=== PATIENT | female | born 1985 | race Caucasian/White ===

== ENCOUNTER 2017-12-25 16:30 | Emergency (ER) | payer OTHER ==
[2017-12-25 16:35] VITALS: BP 137/99; PULSE 102; RESP 17; TEMP 98.3
[2017-12-25] MEDS ORDERED: KETOROLAC 60 MG/2 ML VIAL IM STA (16:44)
--- NOTE | 2017-12-25 16:49 | ED ---
General Adult HPI - General Chief complaint: Dental/Oral Stated complaint: Tooth Ache Time Seen by Provider: 12/25/17 16:41 Source: patient, RN notes reviewed Mode of arrival: ambulatory Limitations: no limitations - History of Present Illness Initial comments: 32 yo female presents to the ER with a chief complaint of right-sided dental pain. She states this started last night. She states she does have a fractured tooth to the right lower jaw. Patient states that she's been trying [id number] medications without much improvement. She denies any fever chills. She denies a radiation to neck or any difficulty opening closing her mouth. She was concerned due to her continued pain so she thought that she should be evaluated. She states that she does have a dentist but she has not made a follow-up appointment with him yet. Patient denies any recent fever, chills, shortness of breath, chest pain, back pain, abdominal pain, nausea vomiting, numbness or tingling, dysuria or hematuria, constipation or diarrhea, headaches or visual changes, or any other current symptoms. - Related Data Home Medications Medication Instructions Recorded Confirmed ALPRAZolam [Xanax] 0.25 mg PO DAILY PRN 03/26/14 12/17/15 Levothyroxine Sodium [Synthroid] 125 mcg PO QAM 03/26/14 12/17/15 DULoxetine HCL [Cymbalta] 20 mg PO QAM 02/09/15 12/17/15 HYDROcodone/APAP 7.5-325MG [[place] 1 tab PO BID PRN 02/09/15 12/17/15 7.5-325] busPIRone HCL [Buspar] 7.5 mg PO BID 02/09/15 12/17/15 Omeprazole [PriLOSEC] 20 mg PO DAILY PRN 10/13/15 12/17/15 Calcium Carbonate [Tums] 500 mg PO Q6HR PRN 12/17/15 12/17/15 Previous Rx's Medication Instructions Recorded Ibuprofen [Motrin] 800 mg PO Q8HR PRN #30 tab 07/25/15 Ibuprofen [Motrin] 800 mg PO Q8HR PRN #30 tab 12/17/15 Fluconazole [Diflucan] 150 mg PO ONCE #2 tab 12/25/17 Naproxen [Naprosyn] 500 mg PO Q12HR #20 tab 12/25/17 Penicillin V Potassium [Pen Vee K] 500 mg PO QID 7 Days tablet 12/25/17 Allergies Allergy/AdvReac Type Severity Reaction Status Date / Time adhesive tape Allergy Rash/Hives Verified 12/25/17 16:35 Review of Systems ROS Statement: Those systems with pertinent positive or pertinent negative responses have been documented in the HPI. ROS Other: All systems not noted in ROS Statement are negative. Past Medical History Past Medical History: GERD/Reflux, Thyroid Disorder Additional Past Medical History / Comment(s): Tourettes Syndrome,chronic back pain History of Any Multi-Drug Resistant Organisms: None Reported Past Surgical History: Bladder Surgery, Tonsillectomy Additional Past Surgical History / Comment(s): colonoscopy,transvag mesh place, EGD, IUD in place Additional Past Anesthesia/Blood Transfusion Reaction / Comment(s): tearful when waking up from anesthesia Past Psychological History: Anxiety, Depression Smoking Status: Current every day smoker Past Alcohol Use History: Occasional Past Drug Use History: None Reported - Past Family History Mother History Unknown: Yes Family Medical History: Rheumatoid Arthritis (RA) Additional Family Medical History / Comment(s): glaucoma,anxiety,depression Father Family Medical History: Diabetes Mellitus, Hypertension, Thyroid Disorder Additional Family Medical History / Comment(s): MRSA-WOUNDS General Exam Limitations: no limitations General appearance: alert, in no apparent distress Eye exam: Present: normal appearance, PERRL, EOMI. Absent: scleral icterus, conjunctival injection, periorbital swelling ENT exam: Present: normal exam, normal oropharynx (No abscess noted.), mucous membranes moist, other Neck exam: Present: normal inspection. Absent: tenderness, meningismus, lymphadenopathy Respiratory exam: Present: normal lung sounds bilaterally. Absent: respiratory distress, wheezes, rales, rhonchi, stridor Cardiovascular Exam: Present: regular rate, normal rhythm, normal heart sounds. Absent: systolic murmur, diastolic murmur, rubs, gallop, clicks Neurological exam: Present: alert, oriented X3 Psychiatric exam: Present: normal affect, normal mood Skin exam: Present: warm, dry, intact, normal color. Absent: rash Course Vital Signs 12/25/17 16:32 Temperature 98.3 F Pulse Rate 102 H Respiratory 17 Rate Blood Pressure 137/99 O2 Sat by Pulse 99 Oximetry Medical Decision Making - Medical Decision Making 32-year-old female presents emergency department with a chief complaint of right -sided dental pain. At this time the patient will be started on antibiotics and pain medication. We did discuss follow-up return parameters all questions. Patient family stated the Giancarlo on questions have been answered. This time they are negative plan. This and patient will be discharged. Disposition Clinical Impression: Fracture of tooth, Dental caries Disposition: HOME SELF-CARE Condition: Stable Instructions: Dental Caries (ED) Additional Instructions: Please use medication as discussed. Please follow up with family doctor if symptoms have not improved over the next two days. Please return to the emergency room if your symptoms increase or worsen or for any other concerns. Prescriptions: Fluconazole [Diflucan] 150 mg PO ONCE #2 tab Naproxen [Naprosyn] 500 mg PO Q12HR #20 tab Penicillin V Potassium [Pen Vee K] 500 mg PO QID 7 Days tablet Referrals: Lavelle Holder DO [Primary Care Provider] - 1-2 days Time of Disposition: 16:47
== END 2017-12-25 17:11 | disposition home or self-care (01) ==
LOC: EC 16:30
DX: S02.5XXA Fracture of tooth (traumatic), initial encounter for closed fracture (principal); K02.9 Dental caries, unspecified; E07.9 Disorder of thyroid, unspecified; F32.9 Major depressive disorder, single episode, unspecified; F41.9 Anxiety disorder, unspecified; F17.200 Nicotine dependence, unspecified, uncomplicated; Z79.899 Other long term (current) drug therapy; Z91.09 Other allergy status, other than to drugs and biological substances; X58.XXXA Exposure to other specified factors, initial encounter
CPT/HCPCS: 99282; 96372; J1885

== ENCOUNTER 2017-12-30 18:35 | Emergency (ER) | payer OTHER ==
[2017-12-30] MEDS ORDERED: CLINDAMYCIN 900 MG in DEXTROSE 5% IN WATER 50 ML IVPB STA ×2 (20:46)
[2017-12-30] MEDS ORDERED: SODIUM CHLORIDE 0.9% 1,000 ML IV STA (20:46)
[2017-12-30] MEDS ORDERED: RX INFO: IV CONTRAST WAS GIVEN 1 EACH MISC MISCELLANE PRN (20:46)
[2017-12-30] MEDS ORDERED: KETOROLAC 30 MG/ML 1 ML VIAL IVP STA (21:09)
--- NOTE | 2017-12-30 21:18 | ED ---
General Adult HPI - General Chief complaint: Dental/Oral Stated complaint: Tooth infection Time Seen by Provider: 12/30/17 20:16 Source: patient, RN notes reviewed Mode of arrival: ambulatory Limitations: no limitations - History of Present Illness Initial comments: 32-year-old female presents to the emergency department with a chief complaint of worsening right-sided facial pain. She states she was seen here about a week ago for dental pain. She starting antibiotics and pain medication. She states that she has continued to have a fever with this. She states that she does have pain that radiates into the as well as of her jaw. She denies any nausea or vomiting with it. Patient was concerned due to her continuing dental pain and the fact that it was not getting any better. She does have a dental appointment but it is not until the . Patient denies any recent fever, chills, shortness of breath, chest pain, back pain, abdominal pain, nausea vomiting, numbness or tingling, dysuria or hematuria, constipation or diarrhea, headaches or visual changes, or any other current symptoms. - Related Data Home Medications Medication Instructions Recorded Confirmed ALPRAZolam [Xanax] 0.25 mg PO DAILY PRN 03/26/14 12/30/17 Levothyroxine Sodium [Synthroid] 125 mcg PO QAM 03/26/14 12/30/17 DULoxetine HCL [Cymbalta] 20 mg PO QAM 02/09/15 12/30/17 HYDROcodone/APAP 7.5-325MG [[place] 1 tab PO BID PRN 02/09/15 12/30/17 7.5-325] busPIRone HCL [Buspar] 7.5 mg PO BID 02/09/15 12/30/17 Omeprazole [PriLOSEC] 20 mg PO DAILY PRN 10/13/15 12/30/17 Calcium Carbonate [Tums] 500 mg PO Q6HR PRN 12/17/15 12/30/17 Previous Rx's Medication Instructions Recorded Ibuprofen [Motrin] 800 mg PO Q8HR PRN #30 tab 07/25/15 Ibuprofen [Motrin] 800 mg PO Q8HR PRN #30 tab 12/17/15 Fluconazole [Diflucan] 150 mg PO ONCE #2 tab 12/25/17 Naproxen [Naprosyn] 500 mg PO Q12HR #20 tab 12/25/17 Penicillin V Potassium [Pen Vee K] 500 mg PO QID 7 Days tablet 12/25/17 Clindamycin [Cleocin] 450 mg PO Q8HR #90 capsule 12/30/17 traMADol HCl [Ultram] 50 mg PO Q6H PRN #20 tab 12/30/17 Allergies Allergy/AdvReac Type Severity Reaction Status Date / Time adhesive tape Allergy Rash/Hives Verified 12/30/17 19:52 Review of Systems ROS Statement: Those systems with pertinent positive or pertinent negative responses have been documented in the HPI. ROS Other: All systems not noted in ROS Statement are negative. Past Medical History Past Medical History: GERD/Reflux, Thyroid Disorder Additional Past Medical History / Comment(s): Tourettes Syndrome,chronic back pain History of Any Multi-Drug Resistant Organisms: None Reported Past Surgical History: Bladder Surgery, Tonsillectomy Additional Past Surgical History / Comment(s): colonoscopy,transvag mesh place, EGD, IUD in place Additional Past Anesthesia/Blood Transfusion Reaction / Comment(s): tearful when waking up from anesthesia Past Psychological History: Anxiety, Depression Smoking Status: Current every day smoker Past Alcohol Use History: Occasional Past Drug Use History: None Reported - Past Family History Mother History Unknown: Yes Family Medical History: Rheumatoid Arthritis (RA) Additional Family Medical History / Comment(s): glaucoma,anxiety,depression Father Family Medical History: Diabetes Mellitus, Hypertension, Thyroid Disorder Additional Family Medical History / Comment(s): MRSA-WOUNDS General Exam Limitations: no limitations General appearance: alert, in no apparent distress Eye exam: Present: normal appearance, PERRL, EOMI. Absent: scleral icterus, conjunctival injection, periorbital swelling ENT exam: Present: normal exam, mucous membranes moist, other (Diffuse cavities throughout upper and lower right jaw. Tenderness patient along the jawline no obvious abscess noted.) Neck exam: Present: normal inspection, tenderness (some tenderness under right jawline). Absent: meningismus, lymphadenopathy Respiratory exam: Present: normal lung sounds bilaterally. Absent: respiratory distress, wheezes, rales, rhonchi, stridor Cardiovascular Exam: Present: regular rate, normal rhythm, normal heart sounds. Absent: systolic murmur, diastolic murmur, rubs, gallop, clicks Neurological exam: Present: alert, oriented X3 Psychiatric exam: Present: normal affect, normal mood Skin exam: Present: warm, dry, intact, normal color. Absent: rash Course Vital Signs 12/30/17 19:48 Temperature 100.1 F H Pulse Rate 88 Respiratory 20 Rate Blood Pressure 148/99 O2 Sat by Pulse 99 Oximetry Medical Decision Making - Medical Decision Making 32-year-old female presents emergency Department chief complaint of right-sided dental pain. Patient has been on outpatient antibiotics for about one week now. The worsening and she now has a fever. At this time CAT scan is reviewed we discussed results. This time we'll switch her to clindamycin. This time patient's low-grade fever white count is low as well. Patient is feeling better. We will start her on tramadol for pain as well as clindamycin. We discussed close follow-up with a dentist. We discussed this could worsen she may need hospitalization. We did discuss return parameters all questions. Patient stated that she understood and she is agreement this plan. She will be discharged. - Lab Data Result diagrams: 12/30/17 21:13 12/30/17 21:13 Lab Results 12/30/17 12/30/17 Range/Units 21:13 21:13 WBC 11.1 H (3.8-10.6) k/uL RBC 4.75 (3.80-5.40) m/uL Hgb 14.1 (11.4-16.0) gm/dL Hct 42.9 (34.0-46.0) % MCV 90.5 (80.0-100.0) fL MCH 29.6 (25.0-35.0) pg MCHC 32.7 (31.0-37.0) g/dL RDW 12.7 (11.5-15.5) % Plt Count 310 (150-450) k/uL Neutrophils % 52 % Lymphocytes % 35 % Monocytes % 5 % Eosinophils % 4 % Basophils % 1 % Neutrophils # 5.8 (1.3-7.7) k/uL Lymphocytes # 3.9 (1.0-4.8) k/uL Monocytes # 0.6 (0-1.0) k/uL Eosinophils # 0.5 (0-0.7) k/uL Basophils # 0.1 (0-0.2) k/uL Sodium 139 (137-145) mmol/L Potassium 4.4 (3.5-5.1) mmol/L Chloride 102 (98-107) mmol/L Carbon Dioxide 27 (22-30) mmol/L Anion Gap 10 mmol/L BUN 14 (7-17) mg/dL Creatinine 0.71 (0.52-1.04) mg/dL Est GFR (MDRD) Af Amer >60 (>60 ml/min/1.73 sqM) Est GFR (MDRD) Non-Af >60 (>60 ml/min/1.73 sqM) Glucose 87 (74-99) mg/dL Calcium 9.9 (8.4-10.2) mg/dL Total Bilirubin 0.3 (0.2-1.3) mg/dL AST 29 (14-36) U/L ALT 27 (9-52) U/L Alkaline Phosphatase 88 (38-126) U/L Total Protein 7.8 (6.3-8.2) g/dL Albumin 4.6 (3.5-5.0) g/dL - Radiology Data Radiology results: report reviewed, image reviewed Disposition Clinical Impression: Dental caries Disposition: HOME SELF-CARE Condition: Stable Instructions: Dental Caries (ED) Additional Instructions: [facility] [address] [place] [address] [phone] (existing clients only) For new clients: [phone] 1st consult: $50 (includes Xrays) Usually 30% less then private dentist for visits after. [employer] Have to pay $50 for Xrays anmd rest is covered. [phone] Please use medication as discussed. Please follow up with family doctor if symptoms have not improved over the next two days. Please return to the emergency room if your symptoms increase or worsen or for any other concerns. Prescriptions: Clindamycin [Cleocin] 450 mg PO Q8HR #90 capsule traMADol HCl [Ultram] 50 mg PO Q6H PRN #20 tab PRN Reason: Pain Referrals: Lavelle Holder DO [Primary Care Provider] - 1-2 days Time of Disposition: 22:15
[2017-12-30 21:34] LABS: Basophils # (A) 0.1 k/uL (0-0.2); Basophils % (A) 1 %; Eosinophils # (A) 0.5 k/uL (0-0.7); Eosinophils % (A) 4 %; HCT 42.9 % (34.0-46.0); HGB 14.1 gm/dL (11.4-16.0); Lymphocytes # (A) 3.9 k/uL (1.0-4.8); Lymphocytes % (A) 35 %; MCH 29.6 pg (25.0-35.0); MCHC 32.7 g/dL (31.0-37.0); MCV 90.5 fL (80.0-100.0); Mean Platelet Volume 7.1; Monocytes # (A) 0.6 k/uL (0-1.0); Monocytes % (A) 5 %; Neutrophils # (A) 5.8 k/uL (1.3-7.7); Neutrophils % (A) 52 %; Platelet Count 310 k/uL (150-450); RBC 4.75 m/uL (3.80-5.40); RDW 12.7 % (11.5-15.5); WBC 11.1 k/uL (3.8-10.6)
[2017-12-30 21:43] LABS: ALT 27 U/L (9-52); AST 29 U/L (14-36); Albumin 4.6 g/dL (3.5-5.0); Alkaline Phosphatase 88 U/L (38-126); Anion Gap 10 mmol/L; Blood Urea Nitrogen 14 mg/dL (7-17); Calcium 9.9 mg/dL (8.4-10.2); Carbon Dioxide 27 mmol/L (22-30); Chloride 102 mmol/L (98-107); Glucose 87 mg/dL (74-99); Potassium 4.4 mmol/L (3.5-5.1); Sodium 139 mmol/L (137-145); Total Bilirubin 0.3 mg/dL (0.2-1.3); Total Protein 7.8 g/dL (6.3-8.2)
--- NOTE | 2017-12-30 22:05 | CT ---
EXAMINATION TYPE: CT soft tissue neck w con DATE OF EXAM: 12/30/2017 HISTORY: Jaw and head pain x6 days. COMPARISON: NONE CT DLP: 594.2 mGycm. Automated Exposure Control for Dose Reduction was Utilized. TECHNIQUE: CT scan of the neck is performed with IV Contrast, patient injected with 100ml mL of Omni paque 300, axial images are obtained, coronal and sagittal reformatted images are reviewed. FINDINGS: Airway: No gross abnormality seen. Parotid/submandibular glands: No gross abnormality seen. Partially intraparotid lymph nodes are seen bilaterally. Carotid/Vascular Structures: The left vertebral artery originates strictly from the aortic arch, a no rmal variant. Left vertebral artery is dominant and right vertebral artery is diminutive. Carotid art eries and their visualized portions are patent. Vertebral arteries are also patent. Osseous Structures: Osseous structures appear intact. Within the fifth posterior to this on the right of the mandible there is periapical lucency without cortical breakthrough indicative of periodontal disease without abscess. Mandibular condyles are located within the mandibular fossa. Paranasal sinus es are well aerated. Other: No visualized adenopathy within the head or neck IMPRESSION: 1. Right maxillary tooth periapical lucency relating to periodontal disease without current abscess. 2. Temporomandibular joints are symmetric and unremarkable. MRI could be performed if there is furthe r clinical indication.
[2017-12-30 23:03] VITALS: BP 135/80; PULSE 90; RESP 18; TEMP 98.9
== END 2017-12-30 23:00 | disposition home or self-care (01) ==
LOC: EC 18:35
DX: K02.9 Dental caries, unspecified (principal); F32.9 Major depressive disorder, single episode, unspecified; F41.9 Anxiety disorder, unspecified; E07.9 Disorder of thyroid, unspecified; F17.200 Nicotine dependence, unspecified, uncomplicated; Z91.048 Other nonmedicinal substance allergy status; Z79.899 Other long term (current) drug therapy
CPT/HCPCS: 36415; 80053; 85025; 87040; 70491; 99283; 96365; 96375; 96361; J1885; Q9967

== ENCOUNTER 2018-07-18 11:01 | Emergency (ER) | payer OTHER ==
[2018-07-18 11:09] VITALS: BP 140/98; PULSE 90; RESP 18; TEMP 98.3
--- NOTE | 2018-07-18 11:56 | ED ---
ENT HPI - General Chief complaint: ENT Stated complaint: Throat/Ear Pain Time Seen by Provider: 07/18/18 11:23 Source: patient, RN notes reviewed, old records reviewed Mode of arrival: ambulatory Limitations: no limitations - History of Present Illness Initial comments: Patient is a 32 year old female, with CC of sore throat onset 3-4 days ago. Patient reports that it seems to be worsening. Patient complains of a cough with thick yellow mucus, sinus conestion. Patient reports that she has ear pain. She has been taking OTC medications without relief. No history of sick contacts. - Related Data Home Medications Medication Instructions Recorded Confirmed Levothyroxine Sodium [Synthroid] 125 mcg PO QAM 03/26/14 07/18/18 DULoxetine HCL [Cymbalta] 20 mg PO QAM 02/09/15 07/18/18 busPIRone HCL [Buspar] 7.5 mg PO BID 02/09/15 07/18/18 Omeprazole [PriLOSEC] 20 mg PO DAILY PRN 10/13/15 07/18/18 Acyclovir [Zovirax] 400 mg PO BID 07/18/18 07/18/18 Previous Rx's Medication Instructions Recorded Ibuprofen [Motrin] 800 mg PO Q8HR PRN #30 tab 12/17/15 Azithromycin [Zithromax Z-pack] 250 mg PO DIRECTED #6 tab 07/18/18 Fluconazole [Diflucan] 150 mg PO DAILY #2 tab 07/18/18 methylPREDNISolone Dose Pack 4 mg PO DIRECTED #21 package 07/18/18 [Medrol Dose Pack] Allergies Allergy/AdvReac Type Severity Reaction Status Date / Time adhesive tape Allergy Rash/Hives Verified 07/18/18 11:18 Review of Systems ROS Statement: Those systems with pertinent positive or pertinent negative responses have been documented in the HPI. ROS Other: All systems not noted in ROS Statement are negative. Past Medical History Past Medical History: GERD/Reflux, Thyroid Disorder Additional Past Medical History / Comment(s): Tourettes Syndrome,chronic back pain History of Any Multi-Drug Resistant Organisms: None Reported Past Surgical History: Bladder Surgery, Tonsillectomy Additional Past Surgical History / Comment(s): colonoscopy,transvag mesh place, EGD, IUD in place Additional Past Anesthesia/Blood Transfusion Reaction / Comment(s): tearful when waking up from anesthesia Past Psychological History: Anxiety, Depression Smoking Status: Current every day smoker Past Alcohol Use History: Occasional Past Drug Use History: None Reported - Past Family History Mother History Unknown: Yes Family Medical History: Rheumatoid Arthritis (RA) Additional Family Medical History / Comment(s): glaucoma,anxiety,depression Father Family Medical History: Diabetes Mellitus, Hypertension, Thyroid Disorder Additional Family Medical History / Comment(s): MRSA-WOUNDS General Exam - General Exam Comments Initial Comments: Well appearing 32 year old female, no distress. Limitations: no limitations General appearance: alert, in no apparent distress Head exam: Present: atraumatic, normocephalic, normal inspection Eye exam: Present: normal appearance, PERRL, EOMI. Absent: scleral icterus, conjunctival injection, periorbital swelling ENT exam: Present: normal exam, mucous membranes moist, TM's normal bilaterally (Effusion R TM). Absent: normal oropharynx (Erythematous oropharynx, ) Neck exam: Present: normal inspection. Absent: tenderness, meningismus, lymphadenopathy Respiratory exam: Present: normal lung sounds bilaterally. Absent: respiratory distress, wheezes, rales, rhonchi, stridor Cardiovascular Exam: Present: regular rate, normal rhythm, normal heart sounds. Absent: systolic murmur, diastolic murmur, rubs, gallop, clicks GI/Abdominal exam: Present: soft, normal bowel sounds. Absent: distended, tenderness, guarding, rebound, rigid Extremities exam: Present: normal inspection, full ROM, normal capillary refill. Absent: tenderness, pedal edema, joint swelling, calf tenderness Back exam: Present: normal inspection Neurological exam: Present: alert, oriented X3, CN II-XII intact Psychiatric exam: Present: normal affect, normal mood Skin exam: Present: warm, dry, intact, normal color. Absent: rash Course Vital Signs 07/18/18 11:07 Temperature 98.3 F Pulse Rate 90 Respiratory 18 Rate Blood Pressure 140/98 O2 Sat by Pulse 99 Oximetry Medical Decision Making - Medical Decision Making 32 year old [employer] [place] presents with upper respiratory infection. Patient has erythematous sore throat, patient has effusion in R TM. At this tie will start patient on steriod and azithromycin. Requests diflucan for after antibiotic for yeast infection. REturn parameters discussed. - Lab Data Lab Results 07/18/18 Range/Units 11:30 Group A Strep Rapid Negative (Negative) Disposition Clinical Impression: Upper respiratory infection Disposition: HOME SELF-CARE Condition: Good Instructions: Upper Respiratory Infection (ED) Additional Instructions: Patient advised to rest and increase fluid intake. Continue [id number] medications such as decongestant. Return to emergency department if any alarming signs or symptoms occur. Prescriptions: Azithromycin [Zithromax Z-pack] 250 mg PO DIRECTED #6 tab Fluconazole [Diflucan] 150 mg PO DAILY #2 tab methylPREDNISolone Dose Pack [Medrol Dose Pack] 4 mg PO DIRECTED #21 package Is patient prescribed a controlled substance at d/c from ED?: No Referrals: Lavelle Holder DO [Primary Care Provider] - 1-2 days Time of Disposition: 11:51
== END 2018-07-18 11:59 | disposition home or self-care (01) ==
LOC: EC 11:01
DX: J06.9 Acute upper respiratory infection, unspecified (principal); H92.09 Otalgia, unspecified ear; E07.9 Disorder of thyroid, unspecified; F32.9 Major depressive disorder, single episode, unspecified; F41.9 Anxiety disorder, unspecified; F17.200 Nicotine dependence, unspecified, uncomplicated; Z91.048 Other nonmedicinal substance allergy status; Z79.899 Other long term (current) drug therapy; Z90.89 Acquired absence of other organs
CPT/HCPCS: 87081; 87430; 99283

== ENCOUNTER → 2018-11-11 | Outpatient (CLI) | payer OTHER | LOC: LABWHC1 16:28 | PROVIDERS: ATTEND Nurse Practitioner Adult Health | DX: I10 Essential (primary) hypertension (principal) | CPT/HCPCS: 36415; 82088; 82533 ==

== ENCOUNTER 2019-01-27 20:22 | Emergency (ER) | payer OTHER ==
[2019-01-27 20:38] VITALS: BP 134/95; PULSE 84; RESP 17; TEMP 98.1
--- NOTE | 2019-01-27 21:42 | ED ---
General Adult HPI - General Chief complaint: Dental/Oral Stated complaint: Dental pain Time Seen by Provider: 01/27/19 21:09 Source: patient, RN notes reviewed Mode of arrival: ambulatory Limitations: no limitations - History of Present Illness Initial comments: 33-year-old female presents to the emergency department for a chief complaint of dental pain. Patient states she was supposed to get a root canal on tooth 6 about 6 months ago but did not have this done. Patient states she has not had significant pain until now. She states this started yesterday. She describes it as a shooting pain above that tooth. She denies nausea or vomiting, denies neck stiffness. Patient also complaining of "bacterial vaginosis." Patient states that she has tissue smelling vaginal discharge. She states that she gets bacterial vaginosis every couple months. States that she is sure this is what it is. States she was recently tested for gonorrhea and chlamydia and these were negative. States she has no concern for STDs or . States she would like antibiotics for this. Patient has no other complaints at this time including shortness of breath, chest pain, abdominal pain, nausea or vomiting, headache, or visual changes. - Related Data Home Medications Medication Instructions Recorded Confirmed Acyclovir [Zovirax] 400 mg PO BID 07/18/18 07/18/18 DULoxetine HCL [Cymbalta] 60 mg PO DAILY 01/27/19 01/27/19 Levothyroxine Sodium [Synthroid] 137 mcg PO DAILY 01/27/19 01/27/19 Metoprolol Succinate (ER) [Toprol 25 mg PO DAILY 01/27/19 01/27/19 Xl] Phentermine HCl [Adipex-P] 37.5 mg PO DAILY 01/27/19 01/27/19 Previous Rx's Medication Instructions Recorded Fluconazole [Diflucan] 150 mg PO ONCE #1 tab 01/27/19 Penicillin V Potassium [Pen Vee K] 500 mg PO Q6H 10 Days tablet 01/27/19 metroNIDAZOLE [Flagyl] 500 mg PO BID #14 tab 01/27/19 Allergies Allergy/AdvReac Type Severity Reaction Status Date / Time adhesive tape Allergy Rash/Hives Verified 01/27/19 21:52 Review of Systems ROS Statement: Those systems with pertinent positive or pertinent negative responses have been documented in the HPI. ROS Other: All systems not noted in ROS Statement are negative. Past Medical History Past Medical History: GERD/Reflux, Hypertension, Thyroid Disorder Additional Past Medical History / Comment(s): Tourettes Syndrome,chronic back pain, History of Any Multi-Drug Resistant Organisms: None Reported Past Surgical History: Bladder Surgery, Tonsillectomy Additional Past Surgical History / Comment(s): colonoscopy,transvag mesh place, EGD, IUD in place, Additional Past Anesthesia/Blood Transfusion Reaction / Comment(s): tearful when waking up from anesthesia Past Psychological History: Anxiety, Depression Smoking Status: Current every day smoker Past Alcohol Use History: Occasional Past Drug Use History: None Reported - Past Family History Mother History Unknown: Yes Family Medical History: Rheumatoid Arthritis (RA) Additional Family Medical History / Comment(s): glaucoma,anxiety,depression Father Family Medical History: Diabetes Mellitus, Hypertension, Thyroid Disorder Additional Family Medical History / Comment(s): MRSA-WOUNDS General Exam Limitations: no limitations General appearance: alert, in no apparent distress Head exam: Present: atraumatic, normocephalic, normal inspection Eye exam: Present: normal appearance, PERRL, EOMI. Absent: scleral icterus, conjunctival injection, periorbital swelling ENT exam: Present: normal exam, mucous membranes moist Neck exam: Present: normal inspection, full ROM. Absent: tenderness, meningismus, lymphadenopathy Respiratory exam: Present: normal lung sounds bilaterally. Absent: respiratory distress, wheezes, rales, rhonchi, stridor Cardiovascular Exam: Present: regular rate, normal rhythm, normal heart sounds. Absent: systolic murmur, diastolic murmur, rubs, gallop, clicks GI/Abdominal exam: Present: soft, normal bowel sounds. Absent: distended, tenderness, guarding, rebound, rigid External exam: Present: other (REFUSED) Neurological exam: Present: alert, oriented X3, CN II-XII intact Psychiatric exam: Present: normal affect, normal mood Course Vital Signs 01/27/19 20:34 Temperature 98.1 F Pulse Rate 84 Respiratory 17 Rate Blood Pressure 134/95 O2 Sat by Pulse 99 Oximetry Medical Decision Making - Medical Decision Making 33-year-old female presents to the emergency department for a chief complaint of dental pain. Patient complains of pain over tooth 6. On exam no abscess noted in the gumline. No broken tooth. Patient states she was supposed to get a root canal and has been interpreted. Patient will be treated with penicillin. Denies fevers, chills, neck stiffness, sublingual swelling, or difficult swa llowing. Patient also complaining of fish she ate vaginal discharge that she states is consistent with past diagnoses of bacterial vaginosis. States she has had this every couple months and usually her primary care provider treats this by she is here she would like treatment. States she was recently tested for gonorrhea and chlamydia which are negative. Patient refused a pelvic exam stating she knows exactly what this is. Does agree to have gonorrhea and chlamydia sent to lab for repeat but does not want empiric treatment. Patient will follow up with primary care in 1-2 days and return if she has any worsening symptoms. Disposition Clinical Impression: Pain, dental, Vaginal discharge Disposition: HOME SELF-CARE Condition: Good Instructions (If sedation given, give patient instructions): Toothache (ED) Additional Instructions: Please take medications as directed. Follow-up with dentist as soon as possible. Please follow-up with primary care in 1-2 days. Please return here to the emergency department if you have any worsening symptoms. Prescriptions: Fluconazole [Diflucan] 150 mg PO ONCE #1 tab metroNIDAZOLE [Flagyl] 500 mg PO BID #14 tab Penicillin V Potassium [Pen Vee K] 500 mg PO Q6H 10 Days tablet Is patient prescribed a controlled substance at d/c from ED?: No Referrals: [facility] [NON-STAFF] - 1-2 days Nel Lamas MD [STAFF PHYSICIAN] - 1-2 days Time of Disposition: 21:40
[2019-01-28 15:39] LABS: C. trachomatis,PCR Negative (Neg,Equiv); Chlamydia trachomatis Source Urine; N. gonorrhoeae,PCR Negative (Neg,Equiv); Neisseria Source Urine
== END 2019-01-27 21:45 | disposition home or self-care (01) ==
LOC: EC 20:22
DX: K08.89 Other specified disorders of teeth and supporting structures (principal); N89.8 Other specified noninflammatory disorders of vagina; I10 Essential (primary) hypertension; E07.9 Disorder of thyroid, unspecified; F41.9 Anxiety disorder, unspecified; F32.9 Major depressive disorder, single episode, unspecified; F17.200 Nicotine dependence, unspecified, uncomplicated; Z79.899 Other long term (current) drug therapy; Z79.890 Hormone replacement therapy; Z91.048 Other nonmedicinal substance allergy status
CPT/HCPCS: 87491; 87591; 99283

== ENCOUNTER 2019-04-21 06:53 | Day surgery (SDC) | payer OTHER ==
[2019-04-16 10:54] VITALS: BMI 29.8
[~2019-04-21 06:53] MED LIST: DEXAMETHASONE SOD PHOSPHATE 10 MG/ML 1 ML VIAL IV ONE; HEPARIN SODIUM,PORCINE 5,000 UNIT/ML 1 ML VIAL SQ ONE; LACTATED RINGERS 1,000 ML IV SCH; LIDOCAINE 1% 20 ML VIAL (10MG/ML) FOR IV START INTRADERMA PRN; ONDANSETRON 4 MG/2 ML VIAL IVP ONE; SCOPOLAMINE 1.5MG/72HR PATCH TRANSDERM ONE; ceFAZolin IN SWFI 2 GM/20 ML SYRINGE IVP ONE
--- NOTE | 2019-04-21 07:49 | P.GSHP ---
History of Present Illness H&P Date: 04/21/19 Chief Complaint: Right upper quadrant pain This is a 33-year-old female who presents today for laparoscopic cholecystectomy. Patient's had complaints of right upper quadrant pain. She's had a HIDA scan performed which showed an elevated ejection fraction. Past Medical History Past Medical History: GERD/Reflux, Hypertension, Thyroid Disorder Additional Past Medical History / Comment(s): Tourettes Syndrome,chronic back pain, History of Any Multi-Drug Resistant Organisms: None Reported Past Surgical History: Bladder Surgery, Tonsillectomy Additional Past Surgical History / Comment(s): colonoscopy,transvag mesh place, EGD, IUD in place, Additional Past Anesthesia/Blood Transfusion Reaction / Comment(s): tearful when waking up from anesthesia Smoking Status: Current every day smoker - Past Family History Mother History Unknown: Yes Family Medical History: Rheumatoid Arthritis (RA) Additional Family Medical History / Comment(s): glaucoma,anxiety,depression Father Family Medical History: Diabetes Mellitus, Hypertension, Thyroid Disorder Additional Family Medical History / Comment(s): MRSA-WOUNDS Medications and Allergies Home Medications Medication Instructions Recorded Confirmed Type Acyclovir [Zovirax] 400 mg PO DAILY 07/18/18 04/21/19 History DULoxetine HCL [Cymbalta] 60 mg PO DAILY 01/27/19 04/21/19 History Levothyroxine Sodium [Synthroid] 137 mcg PO DAILY 01/27/19 04/21/19 History Metoprolol Succinate (ER) [Toprol 25 mg PO DAILY 01/27/19 04/21/19 History Xl] Omeprazole/Sodium Bicarbonate 20 cap BOTH EARS W/BRKFST PRN 04/21/19 04/21/19 History [Omeppi 20 mg-1,100 mg Capsule] Allergies Allergy/AdvReac Type Severity Reaction Status Date / Time adhesive tape Allergy Rash/Hives Verified 04/16/19 10:49 Surgical - Exam Vital Signs Temp Pulse Resp BP Pulse Ox 97.5 F L 83 16 137/92 97 04/21/19 07:20 04/21/19 07:20 04/21/19 07:20 04/21/19 07:20 04/21/19 07:20 - General well developed, well nourished, no distress - Eyes PERRL - ENT normal pinna - Neck no masses - Respiratory normal expansion - Cardiovascular Rhythm: regular - Abdomen Abdomen: soft, non tender Assessment and Plan Assessment: Right upper quadrant pain Biliary dysfunction Chronically cholecystitis We'll perform laparoscopic cholecystectomy.
[2019-04-21] MEDS ORDERED: SUCCINYLCHOLINE CHLORIDE 100 MG/5 ML SYR IV ONE (07:55)
[2019-04-21] MEDS ORDERED: NEOSTIGMINE 1 MG/ML 10 ML VIAL ONE (07:55)
[2019-04-21] MEDS ORDERED: PROPOFOL 10 MG/ML 20 ML VIAL IV ONE (07:55)
[2019-04-21] MEDS ORDERED: MIDAZOLAM 2 MG/2 ML VIAL ONE (07:55)
[2019-04-21] MEDS ORDERED: LABETALOL 5 MG/ML VIAL MDV ONE (07:55)
[2019-04-21] MEDS ORDERED: ROCURONIUM BROMIDE 10 MG/ML 10 ML VIAL IV ONE (07:55)
[2019-04-21] MEDS ORDERED: KETOROLAC 30 MG/ML 1 ML VIAL ONE (07:55)
[2019-04-21] MEDS ORDERED: LIDOCAINE 1% INJ 10MG/ML (20 ML MDV) ONE (07:55)
[2019-04-21] MEDS ORDERED: GLYCOPYRROLATE 0.2 MG/ML 2 ML VIAL ONE (07:55)
[2019-04-21] MEDS ORDERED: fentaNYL (PF) 50 MCG/ML 2 ML AMP ONE (07:55)
[2019-04-21] MEDS ORDERED: BUPIVACAINE (PF) 0.5% 30 ML VIAL SQ ONE (08:23)
--- NOTE | 2019-04-21 08:50 | P.OP ---
Date of Procedure: 04/21/19 Preoperative Diagnosis: Cholecystitis Postoperative Diagnosis: Cholecystitis Procedure(s) Performed: Laparoscopic cholecystectomy Anesthesia: JOHNNA Surgeon: Jose Angel Jack Estimated Blood Loss (ml): 5 Pathology: other (Gallbladder) Condition: stable Disposition: PACU Description of Procedure: The patient was placed on the operating table. The patient received a general endotracheal tube anesthesia. The patients abdomen was prepped and draped in the usual sterile fashion. Through an infraumbilical stab incision, the fascia of the anterior abdominal wall was grasped with a pair of Kochers and then the Veress needle was placed in the peritoneal cavity. Position of the Veress needle was confirmed with positive drop test. The abdomen was then insufflated. After adequate insufflation, the 10 mm trocar was placed in the peritoneal cavity. Following this the laparoscope was placed in the peritoneal cavity. The patient was placed in the head-up, right side up position and then a 5 mm trocar was placed in the right lateral and right subcostal position under direct visualization. A 8 mm trocar was placed in the epigastric position. The gallbladder was grasped in the fundus and infundibulum. Traction on the gallbladder was placed in the lateral and the cephalad positions. The triangle of Calot was visualized.. The cystic duct was bluntly dissected until the union of the cystic duct and common bile duct was seen. A critical view of safety was achieved. The cystic duct was then divided and sealed with the Harmonic scissors. A PDS Endoloop was then placed throughout the cystic duct stump. The cystic artery divided and sealed with the Harmonic scissors. The gallbladder was then removed from the liver bed using Harmonic scissors. The gallbladder was then extracted through the epigastric port site. Operative field was checked for any bleeding spots and Harmonic scissors was used to coagulate the liver bed. The abdomen was irrigated. The trocars were removed. The skin was closed using interrupted 3-0 Vicryl suture. Dermabond dressing were applied. The patient tolerated the procedure well.
[2019-04-21] MEDS: HYDROmorphone 0.5 MG/0.5 ML SYRINGE IVP PRN ×4 (08:54→09:25)
[2019-04-21] MEDS ORDERED: LACTATED RINGERS 1,000 ML IV ONE ×2 (09:15)
[2019-04-21 09:26] VITALS: TEMP 96.9
[2019-04-21 09:29] VITALS: RESP 16
[2019-04-21 11:36] VITALS: BP 122/83; PULSE 101
== END 2019-04-21 12:21 | disposition home or self-care (01) ==
LOC: OR 06:53
PROVIDERS: ATTEND Surgery
DX: K81.1 Chronic cholecystitis (principal); K21.9 Gastro-esophageal reflux disease without esophagitis; I10 Essential (primary) hypertension; E07.9 Disorder of thyroid, unspecified; F95.2 Tourette's disorder; M54.9 Dorsalgia, unspecified; G89.29 Other chronic pain; I49.9 Cardiac arrhythmia, unspecified; F17.210 Nicotine dependence, cigarettes, uncomplicated; Z79.890 Hormone replacement therapy; Z79.899 Other long term (current) drug therapy; Z79.2 Long term (current) use of antibiotics; Z91.048 Other nonmedicinal substance allergy status; Z91.19 Patient's noncompliance with other medical treatment and regimen
CPT/HCPCS: 81025; 88304; 47562; J2250; J1644; J1100; J2710; J2405; J2001; J3010; J1885; J0330; J2704; J1170; J0690

== ENCOUNTER 2019-05-05 14:03 | Emergency (ER) | payer OTHER ==
[2019-05-05 14:16] VITALS: BP 138/97; PULSE 90; RESP 18; TEMP 98.7
--- NOTE | 2019-05-05 14:58 | ED ---
General Adult HPI - General Chief complaint: Recheck/Abnormal Lab/Rx Stated complaint: bacterial infection Time Seen by Provider: 05/05/19 14:22 Source: patient Mode of arrival: ambulatory Limitations: no limitations - History of Present Illness Initial comments: Patient is a 33-year-old female presenting to the emergency department with vaginal complaints x 2 days. Patient states she is having vaginal discharge and an odor. She states she has had BV in the past and this feels very similar. Patient describes the discharge as thick and vitale color. Patient denies urinary complaints. Patient states she recently went to the [facility] for STD testing and has no concerns for STDs at this time. Patient has no other complaints at this time. Patient denies fever, chills, abdominal pain. Of note, patient recently had her gallbladder removed so she has some soreness from the surgery. - Related Data Home Medications Medication Instructions Recorded Confirmed Acyclovir [Zovirax] 400 mg PO DAILY 07/18/18 05/05/19 DULoxetine HCL [Cymbalta] 60 mg PO DAILY 01/27/19 05/05/19 Metoprolol Succinate (ER) [Toprol 25 mg PO HS 01/27/19 05/05/19 Xl] Omeprazole/Sodium Bicarbonate 20 cap BOTH EARS W/BRKFST PRN 04/21/19 05/05/19 [Omeppi 20 mg-1,100 mg Capsule] Levothyroxine Sodium [Synthroid] 125 mcg PO DAILY 05/05/19 05/05/19 Previous Rx's Medication Instructions Recorded metroNIDAZOLE [Flagyl] 500 mg PO BID 7 Days #14 tab 05/05/19 Allergies Allergy/AdvReac Type Severity Reaction Status Date / Time adhesive tape Allergy Rash/Hives Verified 05/05/19 14:31 Review of Systems ROS Statement: Those systems with pertinent positive or pertinent negative responses have been documented in the HPI. ROS Other: All systems not noted in ROS Statement are negative. Past Medical History Past Medical History: GERD/Reflux, Hypertension, Thyroid Disorder Additional Past Medical History / Comment(s): Tourettes Syndrome,chronic back pain, History of Any Multi-Drug Resistant Organisms: None Reported Past Surgical History: Bladder Surgery, Tonsillectomy Additional Past Surgical History / Comment(s): colonoscopy,transvag mesh place, EGD, IUD in place, Additional Past Anesthesia/Blood Transfusion Reaction / Comment(s): tearful when waking up from anesthesia Past Psychological History: Anxiety, Depression Smoking Status: Current every day smoker - Past Family History Mother History Unknown: Yes Family Medical History: Rheumatoid Arthritis (RA) Additional Family Medical History / Comment(s): glaucoma,anxiety,depression Father Family Medical History: Diabetes Mellitus, Hypertension, Thyroid Disorder Additional Family Medical History / Comment(s): MRSA-WOUNDS General Exam - General Exam Comments Initial Comments: GENERAL: Well-appearing, well-nourished and in no acute distress. HEAD: Atraumatic, normocephalic. EYES: Pupils equal round and reactive to light, extraocular movements intact, sclera anicteric, conjunctiva are normal. ENT: TMs normal, nares patent, oropharynx clear without exudates. Moist mucous membranes. NECK: Normal range of motion, supple without lymphadenopathy or JVD. LUNGS: Breath sounds clear to auscultation bilaterally and equal. No wheezes rales or rhonchi. HEART: Regular rate and rhythm without murmurs, rubs or gallops. ABDOMEN: Soft, nontender, normoactive bowel sounds. No guarding, no rebound. No masses appreciated. Patient has 2 small incisions from recent cholecystectomy. No signs of infection. : Deferred (patient declined) EXTREMITIES: Normal range of motion, no pitting or edema. No clubbing or cyanosis. NEUROLOGICAL: Cranial nerves II through XII grossly intact. Normal speech, normal gait. PSYCH: Normal mood, normal affect. SKIN: Warm, Dry, normal turgor, no rashes or lesions noted. Limitations: no limitations Course Vital Signs 05/05/19 14:13 Temperature 98.7 F Pulse Rate 90 Respiratory 18 Rate Blood Pressure 138/97 O2 Sat by Pulse 99 Oximetry Medical Decision Making - Medical Decision Making Patient is a 33-year-old female presenting to the ER with vaginal complaints 2 days. Patient states she's been having thick/vitale vaginal discharge and odor. She has had BV in the past and this seems very similar. Patient states she had STD testing performed at the health department 2 weeks ago and is declining a vaginal exam at this time. Patient will be treated for BV based on symptoms and will follow up with PCP if symptoms continue. Patient will be discharged home. Patient counseled on not drinking alcohol with Flagyl. Disposition Clinical Impression: Bacterial vaginosis Disposition: HOME SELF-CARE Condition: Stable Instructions (If sedation given, give patient instructions): Bacterial Vaginosis (ED) Additional Instructions: Please return to the Emergency Department if symptoms worsen or any other concerns. Follow-up with PCP if symptoms continue. Prescriptions: metroNIDAZOLE [Flagyl] 500 mg PO BID 7 Days #14 tab Is patient prescribed a controlled substance at d/c from ED?: No Referrals: None,Stated [Primary Care Provider] - 1-2 days
== END 2019-05-05 15:30 | disposition home or self-care (01) ==
LOC: EC 14:03
DX: N76.0 Acute vaginitis (principal); K21.9 Gastro-esophageal reflux disease without esophagitis; I10 Essential (primary) hypertension; E07.9 Disorder of thyroid, unspecified; F32.9 Major depressive disorder, single episode, unspecified; F41.9 Anxiety disorder, unspecified; Z79.890 Hormone replacement therapy; Z79.899 Other long term (current) drug therapy; Z91.048 Other nonmedicinal substance allergy status; Z53.29 Procedure and treatment not carried out because of patient's decision for other reasons
CPT/HCPCS: 99283

== ENCOUNTER 2019-06-01 19:50 | Emergency (ER) | payer OTHER ==
[2019-06-01 21:02] VITALS: TEMP 97.6
[2019-06-01 21:50] LABS: Appearance,Urine Cloudy (Clear); Bacteria,Urine Rare /hpf; Bilirubin,Urine Negative (Negative); Blood,Urine Small (Negative); Color,Urine Dark Yellow; Glucose,Urine (UA) Negative (Negative); Ketones,Urine Negative (Negative); Leukocyte Esterase,Urine Large (Negative); Mucus,Urine Many /hpf; Nitrite,Urine Positive (Negative); PH, Urine 6.5 (5.0-8.0); Protein,Urine 1+ (Negative); RBC,Urine 36 /hpf (0-5); Specific Gravity,Urine 1.025 (1.001-1.035); Squamous Epithelial Cell,Urine 13 /hpf (0-4)
[2019-06-01] MEDS ORDERED: cefTRIAXone IN SWFI 1,000 MG/10 ML SYRINGE IVP STA (22:54)
--- NOTE | 2019-06-01 23:08 | ED ---
General Adult HPI - General Chief complaint: Urogenital Stated complaint: Poss UTI Time Seen by Provider: 06/01/19 22:01 Source: patient Mode of arrival: ambulatory Limitations: no limitations - History of Present Illness Initial comments: Dictation was produced using [employer] dictation software. please excuse any grammatical, word or spelling errors. Chief Complaint: 33-year-old female past medical history of GERD hypertension thyroid disease presents with suprapubic pain. History of Present Illness: Is a 33-year-old man female she presents suprapubic pain. Patient also complains of vaginal discharge. She states that she has a clear malodorous vaginal discharge. Patient also complains of some suprapubic tenderness that has been progressive and worse in the last day. Patient states she's can offer. Denies any flank pain CVA tenderness. Patient hasn't nausea vomiting. The ROS documented in this emergency department record has been reviewed and confirmed by me. Those systems with pertinent positive or negative responses have been documented in the HPI. All other systems are other negative and/or noncontributory. PHYSICAL EXAM: General Impression: Alert and oriented x3, not in acute distress HEENT: Normocephalic atraumatic, extra-ocular movements intact, pupils equal and reactive to light bilaterally, mucous membranes moist. Cardiovascular: Heart regular rate and rhythm, S1&S2 audible, no murmurs, rubs or gallops Chest: Lungs clear to auscultation bilaterally, no rhonchi, no wheeze, no rales Abdomen: Bowel sounds present, abdomen soft, mild superpubic tenderness, non- distended, no organomegaly Musculoskeletal: Pulses present and equal in all extremities, no peripheral edema Motor: no focal deficits noted Neurological: CN II-XII grossly intact, no focal motor or sensory deficits noted Skin: Intact with no visualized rashes Psych: Normal affect and mood Patient refused pelvic exam. ED course: 33-year-old female she presents with concerns of bacterial vaginosis and urinary tract infection. As upon arrival are within acceptable limits. Laboratory evaluation shows findings consistent with cystitis. Urine is negative. Patient given 1 g Rocephin. Patient prescription to fill tomorrow for a urinary tract infection. She is also given a 7 day course of Flagyl for BV. Patient also requesting 1 dose of Diflucan for possible yeast candidiasis. Patient told to follow up with primary care physician. Patient clear for discharge. - Related Data Home Medications Medication Instructions Recorded Confirmed Acyclovir [Zovirax] 400 mg PO DAILY 07/18/18 06/01/19 DULoxetine HCL [Cymbalta] 60 mg PO DAILY 01/27/19 06/01/19 Metoprolol Succinate (ER) [Toprol 25 mg PO HS 01/27/19 06/01/19 Xl] Levothyroxine Sodium [Synthroid] 125 mcg PO DAILY 05/05/19 06/01/19 Previous Rx's Medication Instructions Recorded Cephalexin [Keflex] 500 mg PO Q6HR 5 Days #20 cap 06/01/19 Fluconazole [Diflucan] 150 mg PO ONCE #1 tab 06/01/19 metroNIDAZOLE [Flagyl] 500 mg PO BID 7 Days #14 tab 06/01/19 Allergies Allergy/AdvReac Type Severity Reaction Status Date / Time adhesive tape Allergy Rash/Hives Verified 06/01/19 21:47 Review of Systems ROS Statement: Those systems with pertinent positive or pertinent negative responses have been documented in the HPI. ROS Other: All systems not noted in ROS Statement are negative. Past Medical History Past Medical History: GERD/Reflux, Hypertension, Thyroid Disorder Additional Past Medical History / Comment(s): Tourettes Syndrome,chronic back pain, History of Any Multi-Drug Resistant Organisms: None Reported Past Surgical History: Bladder Surgery, Tonsillectomy Additional Past Surgical History / Comment(s): colonoscopy,transvag mesh place, EGD, IUD in place, Additional Past Anesthesia/Blood Transfusion Reaction / Comment(s): tearful when waking up from anesthesia Past Psychological History: Anxiety, Depression Smoking Status: Current every day smoker Past Alcohol Use History: Occasional Past Drug Use History: None Reported - Past Family History Mother History Unknown: Yes Family Medical History: Rheumatoid Arthritis (RA) Additional Family Medical History / Comment(s): glaucoma,anxiety,depression Father Family Medical History: Diabetes Mellitus, Hypertension, Thyroid Disorder Additional Family Medical History / Comment(s): MRSA-WOUNDS General Exam Limitations: no limitations Course Vital Signs 06/01/19 20:56 Temperature 97.6 F Pulse Rate 84 Respiratory 18 Rate Blood Pressure 136/94 O2 Sat by Pulse 100 Oximetry Medical Decision Making - Lab Data Lab Results 06/01/19 06/01/19 Range/Units 21:31 21:31 Urine Color Dark Yellow Urine Appearance Cloudy H (Clear) Urine pH 6.5 (5.0-8.0) Ur Specific [place] 1.025 (1.001-1.035) Urine Protein 1+ H (Negative) Urine Glucose (UA) Negative (Negative) Urine Ketones Negative (Negative) Urine Blood Small H (Negative) Urine Nitrite Positive H (Negative) Urine Bilirubin Negative (Negative) Urine Urobilinogen 4.0 (<2.0) mg/dL Ur Leukocyte Esterase Large H (Negative) Urine RBC 36 H (0-5) /hpf Urine WBC >182 H (0-5) /hpf Urine WBC Clumps Few H (None) /hpf Ur Squamous Epith Cells 13 H (0-4) /hpf Urine Bacteria Rare H (None) /hpf Urine Mucus Many H (None) /hpf Urine HCG, Qual Not Detected (Not Detectd) Disposition Clinical Impression: Cystitis, Vaginal Discharge Disposition: HOME SELF-CARE Condition: Good Instructions (If sedation given, give patient instructions): Urinary Tract Infection in Women (ED) Prescriptions: Fluconazole [Diflucan] 150 mg PO ONCE #1 tab metroNIDAZOLE [Flagyl] 500 mg PO BID 7 Days #14 tab Cephalexin [Keflex] 500 mg PO Q6HR 5 Days #20 cap Is patient prescribed a controlled substance at d/c from ED?: No Referrals: None,Stated [Primary Care Provider] - 1-2 days Time of Disposition: 23:08
[2019-06-01 23:16] VITALS: BP 136/82; PULSE 79; RESP 16
== END 2019-06-01 23:15 | disposition home or self-care (01) ==
LOC: EC 19:50
DX: N30.90 Cystitis, unspecified without hematuria (principal); N89.8 Other specified noninflammatory disorders of vagina; I10 Essential (primary) hypertension; E07.9 Disorder of thyroid, unspecified; F41.9 Anxiety disorder, unspecified; F32.9 Major depressive disorder, single episode, unspecified; F17.200 Nicotine dependence, unspecified, uncomplicated; Z97.5 Presence of (intrauterine) contraceptive device; Z98.890 Other specified postprocedural states; Z79.890 Hormone replacement therapy; Z79.899 Other long term (current) drug therapy; Z91.048 Other nonmedicinal substance allergy status
CPT/HCPCS: 81001; 81025; 87086; 99284; 96374; J0696; 87077; 87186

== ENCOUNTER 2019-06-11 14:46 | Emergency (ER) | payer OTHER ==
[2019-06-11 15:44] LABS: Appearance,Urine Clear (Clear); Bilirubin,Urine Negative (Negative); Blood,Urine Negative (Negative); Color,Urine Yellow; Glucose,Urine (UA) Negative (Negative); Ketones,Urine Negative (Negative); Leukocyte Esterase,Urine Negative (Negative); Nitrite,Urine Negative (Negative); PH, Urine 7.5 (5.0-8.0); Protein,Urine Negative (Negative); Specific Gravity,Urine 1.007 (1.001-1.035); Urobilinogen,Urine <2.0 mg/dL (<2.0)
--- NOTE | 2019-06-11 16:29 | ED ---
General Adult HPI - General Chief complaint: Urogenital Stated complaint: Female -revisit Time Seen by Provider: 06/11/19 14:53 Source: patient, RN notes reviewed Mode of arrival: ambulatory Limitations: no limitations - History of Present Illness Initial comments: 33-year-old female with a past medical history of Tourette syndrome, back pain, thyroid disorder, GERD, hypertension presents for chief complaint of vaginal discharge. States this has been ongoing for about one month. States that she is somewhat itchy in her vaginal area. States that she was prescribed medicine for bacterial vaginosis and urinary tract infection that she has been taking "once per day to stretch out the prescription". States that her symptoms have not improved. Denies any significant abdominal pain. Denies any fevers. Does admit that she has a foul-smelling odor after sex. States that she tried to follow up with her primary care provider for this but they keep rescheduling. Patient has no other complaints at this time including shortness of breath, chest pain, abdominal pain, nausea or vomiting, headache, or visual changes. - Related Data Home Medications Medication Instructions Recorded Confirmed Acyclovir [Zovirax] 400 mg PO DAILY 07/18/18 06/01/19 DULoxetine HCL [Cymbalta] 60 mg PO DAILY 01/27/19 06/01/19 Metoprolol Succinate (ER) [Toprol 25 mg PO HS 01/27/19 06/01/19 Xl] Levothyroxine Sodium [Synthroid] 125 mcg PO DAILY 05/05/19 06/01/19 Previous Rx's Medication Instructions Recorded Cephalexin [Keflex] 500 mg PO Q6HR 5 Days #20 cap 06/01/19 Fluconazole [Diflucan] 150 mg PO ONCE #1 tab 06/01/19 metroNIDAZOLE [Flagyl] 500 mg PO BID 7 Days #14 tab 06/01/19 Fluconazole [Diflucan] 150 mg PO ONCE #1 tab 06/11/19 Allergies Allergy/AdvReac Type Severity Reaction Status Date / Time adhesive tape Allergy Rash/Hives Verified 06/11/19 14:51 Review of Systems ROS Statement: Those systems with pertinent positive or pertinent negative responses have been documented in the HPI. ROS Other: All systems not noted in ROS Statement are negative. Past Medical History Past Medical History: GERD/Reflux, Hypertension, Thyroid Disorder Additional Past Medical History / Comment(s): Tourettes Syndrome,chronic back pain, History of Any Multi-Drug Resistant Organisms: None Reported Past Surgical History: Bladder Surgery, Tonsillectomy Additional Past Surgical History / Comment(s): colonoscopy,transvag mesh place, EGD, IUD in place, Additional Past Anesthesia/Blood Transfusion Reaction / Comment(s): tearful when waking up from anesthesia Past Psychological History: Anxiety, Depression Smoking Status: Current every day smoker Past Alcohol Use History: Occasional Past Drug Use History: None Reported - Past Family History Mother History Unknown: Yes Family Medical History: Rheumatoid Arthritis (RA) Additional Family Medical History / Comment(s): glaucoma,anxiety,depression Father Family Medical History: Diabetes Mellitus, Hypertension, Thyroid Disorder Additional Family Medical History / Comment(s): MRSA-WOUNDS General Exam Limitations: no limitations General appearance: alert, in no apparent distress Head exam: Present: atraumatic, normocephalic, normal inspection Eye exam: Present: normal appearance, PERRL, EOMI. Absent: scleral icterus, conjunctival injection, periorbital swelling ENT exam: Present: normal exam, mucous membranes moist Neck exam: Present: normal inspection, full ROM. Absent: tenderness, meningismus, lymphadenopathy Respiratory exam: Present: normal lung sounds bilaterally. Absent: respiratory distress, wheezes, rales, rhonchi, stridor Cardiovascular Exam: Present: regular rate, normal rhythm, normal heart sounds. Absent: systolic murmur, diastolic murmur, rubs, gallop, clicks GI/Abdominal exam: Present: soft, normal bowel sounds. Absent: distended, tenderness, guarding, rebound, rigid External exam: Present: normal external exam. Absent: erythema, swelling, lesions, lacerations, ecchymosis Speculum exam: Present: foreign body (tampon noted along cervical fornix.). Absent: normal speculum exam, erythema, vaginal discharge, cervical discharge, vaginal bleeding, tissue, laceration By manual exam: Present: normal by manual exam. Absent: cervical motion tenderness, adnexal tenderness, adnexal mass, uterine enlargement, uterine tenderness, other Neurological exam: Present: alert, oriented X3, CN II-XII intact Psychiatric exam: Present: normal affect, normal mood Course Vital Signs 06/11/19 14:47 Temperature 98.4 F Pulse Rate 100 Respiratory 18 Rate Blood Pressure 134/95 O2 Sat by Pulse 95 Oximetry Medical Decision Making - Medical Decision Making 33-year-old female presents to the emergency department for a chief complaint of vaginal discharge times one month. Patient admits to foul-smelling odor following sex as well. Denies pelvic pain. Denies fevers. Denies dysuria. Patient was prescribed Keflex and Flagyl but has not been taking this as prescribed. Patient did take Diflucan. On exam no abdominal tenderness. Patient is well-appearing, resting comfortable. However on pelvic exam patient did have a retained foreign body. This was removed without difficulty and it was a tampon. Patient states she last used tampons about one month ago. Patient symptoms are likely secondary to retained foreign body in the vagina. However patient still requested Diflucan. Gonorrhea chlamydia and genital culture pending. Urine negative for infection and hCG. Negative trichomonas. Patient will be given Diflucan and recommend following up with primary care. Patient should return here should she have any worsening symptoms, pelvic pain, fevers which was discussed with her. - Lab Data Lab Results 06/11/19 06/11/19 06/11/19 Range/Units 15:29 15:29 15:50 Urine Color Yellow Urine Appearance Clear (Clear) Urine pH 7.5 (5.0-8.0) Ur Specific [place] 1.007 (1.001-1.035) Urine Protein Negative (Negative) Urine Glucose (UA) Negative (Negative) Urine Ketones Negative (Negative) Urine Blood Negative (Negative) Urine Nitrite Negative (Negative) Urine Bilirubin Negative (Negative) Urine Urobilinogen <2.0 (<2.0) mg/dL Ur Leukocyte Esterase Negative (Negative) Urine HCG, Qual Not Detected (Not Detectd) Trichomonas Ag (Rapid) Negative (Negative) Disposition Clinical Impression: Retained vaginal foreign body, Retained tampon Disposition: HOME SELF-CARE Condition: Good Instructions (If sedation given, give patient instructions): Vaginal Foreign Body (ED) Additional Instructions: Please follow up with primary care in 1-2 days. Return to the emergency department if you have any worsening symptoms. Prescriptions: Fluconazole [Diflucan] 150 mg PO ONCE #1 tab Is patient prescribed a controlled substance at d/c from ED?: No Referrals: Nel Lamas MD [STAFF PHYSICIAN] - 1-2 days Time of Disposition: 16:28
[2019-06-11 16:51] VITALS: BP 121/73; PULSE 73; RESP 16; TEMP 97.6
[2019-06-12 12:17] LABS: N. gonorrhoeae,PCR Negative (Neg,Equiv); Neisseria Source Cervix
[2019-06-12 12:20] LABS: C. trachomatis,PCR Negative (Neg,Equiv); Chlamydia trachomatis Source Cervix
== END 2019-06-11 16:45 | disposition home or self-care (01) ==
LOC: EC 14:46
DX: T19.2XXA Foreign body in vulva and vagina, initial encounter (principal); N89.8 Other specified noninflammatory disorders of vagina; I10 Essential (primary) hypertension; E07.9 Disorder of thyroid, unspecified; F41.9 Anxiety disorder, unspecified; F32.9 Major depressive disorder, single episode, unspecified; F17.200 Nicotine dependence, unspecified, uncomplicated; Z97.5 Presence of (intrauterine) contraceptive device; Z98.890 Other specified postprocedural states; Z79.890 Hormone replacement therapy; Z79.899 Other long term (current) drug therapy; Z91.048 Other nonmedicinal substance allergy status; X58.XXXA Exposure to other specified factors, initial encounter
CPT/HCPCS: 81003; 81025; 87070; 87205; 87491; 87591; 87808; 99283

== ENCOUNTER 2019-07-31 17:25 | Emergency (ER) | payer OTHER ==
[2019-07-31] MEDS: SODIUM CHLORIDE 0.9% 1,000 ML IV STA (18:27)
--- NOTE | 2019-07-31 18:29 | ED ---
Female Urogenital HPI - General Source: patient Mode of arrival: ambulatory Limitations: no limitations <Nel Morgan - Last Filed: 07/31/19 19:57> <Mandy Ricks - Last Filed: 07/31/19 21:57> - General Chief complaint: Vaginal Bleeding Stated complaint: vaginal bleeding Time Seen by Provider: 07/31/19 17:35 - History of Present Illness Initial comments: Patient is a 33-year-old female presenting to emergency Department with complaints of heavy vaginal bleeding 10 days. Patient states she had her normal period on July 07, bled for a week and then stopped. About a week and a half later, she started having vaginal bleeding again. She states the last 3 days the bleeding has increased and she is passing big clots. Patient is also having abdominal cramping. She also is complaining of feeling lightheaded and very fatigued. Patient states she does have an IUD in place since 2012. Patient denies fever, chills, vomiting, diarrhea. Patient has no recent changes in medications. Patient has no other complaints at this time. Upon arrival to ER, vital signs stable. (Nel Morgan) - Related Data Home Medications Medication Instructions Recorded Confirmed Acyclovir [Zovirax] 400 mg PO DAILY 07/18/18 06/01/19 DULoxetine HCL [Cymbalta] 60 mg PO DAILY 01/27/19 06/01/19 Metoprolol Succinate (ER) [Toprol 25 mg PO HS 01/27/19 06/01/19 Xl] Levothyroxine Sodium [Synthroid] 125 mcg PO DAILY 05/05/19 06/01/19 Previous Rx's Medication Instructions Recorded Cephalexin [Keflex] 500 mg PO Q6HR 5 Days #20 cap 06/01/19 Fluconazole [Diflucan] 150 mg PO ONCE #1 tab 06/01/19 metroNIDAZOLE [Flagyl] 500 mg PO BID 7 Days #14 tab 06/01/19 Fluconazole [Diflucan] 150 mg PO ONCE #1 tab 06/11/19 Allergies Allergy/AdvReac Type Severity Reaction Status Date / Time adhesive tape Allergy Rash/Hives Verified 07/31/19 17:31 Review of Systems ROS Other: All systems not noted in ROS Statement are negative. <Nel Morgan - Last Filed: 07/31/19 19:57> ROS Other: All systems not noted in ROS Statement are negative. <Mandy Ricks - Last Filed: 07/31/19 21:57> ROS Statement: Those systems with pertinent positive or pertinent negative responses have been documented in the HPI. Past Medical History Past Medical History: GERD/Reflux, Hypertension, Thyroid Disorder Additional Past Medical History / Comment(s): Tourettes Syndrome,chronic back pain, History of Any Multi-Drug Resistant Organisms: None Reported Past Surgical History: Bladder Surgery, Tonsillectomy Additional Past Surgical History / Comment(s): colonoscopy,transvag mesh place, EGD, IUD in place, Additional Past Anesthesia/Blood Transfusion Reaction / Comment(s): tearful when waking up from anesthesia Past Psychological History: Anxiety, Depression Smoking Status: Current every day smoker Past Alcohol Use History: Occasional Past Drug Use History: None Reported - Past Family History Mother History Unknown: Yes Family Medical History: Rheumatoid Arthritis (RA) Additional Family Medical History / Comment(s): glaucoma,anxiety,depression Father Family Medical History: Diabetes Mellitus, Hypertension, Thyroid Disorder Additional Family Medical History / Comment(s): MRSA-WOUNDS <CathyNel L - Last Filed: 07/31/19 19:57> General Exam Limitations: no limitations <Nel Morgan - Last Filed: 07/31/19 19:57> - General Exam Comments Initial Comments: GENERAL: Well-appearing, well-nourished and in no acute distress. HEAD: Atraumatic, normocephalic. EYES: Pupils equal round and reactive to light, extraocular movements intact, sclera anicteric, conjunctiva are normal. ENT: TMs normal, nares patent, oropharynx clear without exudates. Moist mucous membranes. NECK: Normal range of motion, supple without lymphadenopathy or JVD. LUNGS: Breath sounds clear to auscultation bilaterally and equal. No wheezes rales or rhonchi. HEART: Regular rate and rhythm without murmurs, rubs or gallops. ABDOMEN: Mild suprapubic tenderness. Soft, normoactive bowel sounds. No guarding, no rebound. No masses appreciated. : Deferred, declined. EXTREMITIES: Normal range of motion, no pitting or edema. No clubbing or cyanosis. NEUROLOGICAL: Cranial nerves II through XII grossly intact. Normal speech, normal gait. PSYCH: Normal mood, normal affect. SKIN: Warm, Dry, normal turgor, no rashes or lesions noted. (Nel Morgan) Course Vital Signs 07/31/19 07/31/19 17:29 21:37 Temperature 97.9 F 98.3 F Pulse Rate 101 H 93 Respiratory 16 18 Rate Blood Pressure 137/88 132/82 O2 Sat by Pulse 100 98 Oximetry Medical Decision Making - Lab Data Result diagrams: 07/31/19 18:20 07/31/19 18:20 <Nel Morgan - Last Filed: 07/31/19 19:57> - Lab Data Result diagrams: 07/31/19 18:20 07/31/19 18:20 - Radiology Data Radiology results: report reviewed <Mandy Ricks - Last Filed: 07/31/19 21:57> - Medical Decision Making Patient is a 33-year-old female presenting with heavy, abnormal vaginal bleeding 10 days. Patient states she does have an IUD in place. Patient states the bleeding has increased in the last 3 days and is passing blood clots as well. On exam patient has suprapubic tenderness. Rest of exam is within normal limits. CBC shows slight leukocytosis of 14.1. CMP is within normal limits. UA shows large amount of blood, no signs of infection. Urine hCG is not det ected. Ultrasound reveals (Nel Morgan) Care was handed over to me by physician executive marketing assistant Nel Morgan. I did review labs and ultrasound results. Ultrasound shows a 2-3 mm endometrium. A ovarian cyst possibly complex on the right ovary. I did discuss findings and results with the patient. She'll be discharged home to follow-up with the lithoduplicator operator for further evaluation. Return parameters were discussed in detail. She verbalizes understanding and agrees with this plan. (Mandy Ricks) - Lab Data Lab Results 07/31/19 07/31/19 07/31/19 Range/Units 18:20 18:20 18:20 WBC 14.1 H (3.8-10.6) k/uL RBC 4.66 (3.80-5.40) m/uL Hgb 14.7 (11.4-16.0) gm/dL Hct 42.8 (34.0-46.0) % MCV 91.7 (80.0-100.0) fL MCH 31.5 (25.0-35.0) pg MCHC 34.3 (31.0-37.0) g/dL RDW 13.1 (11.5-15.5) % Plt Count 344 (150-450) k/uL Neutrophils % 65 % Lymphocytes % 23 % Monocytes % 4 % Eosinophils % 4 % Basophils % 2 % Neutrophils # 9.2 H (1.3-7.7) k/uL Lymphocytes # 3.3 (1.0-4.8) k/uL Monocytes # 0.6 (0-1.0) k/uL Eosinophils # 0.5 (0-0.7) k/uL Basophils # 0.3 H (0-0.2) k/uL Sodium 140 (137-145) mmol/L Potassium 4.0 (3.5-5.1) mmol/L Chloride 104 (98-107) mmol/L Carbon Dioxide 25 (22-30) mmol/L Anion Gap 11 mmol/L BUN 12 (7-17) mg/dL Creatinine 0.70 (0.52-1.04) mg/dL Est GFR (CKD-EPI)AfAm >90 (>60 ml/min/1.73 sqM) Est GFR (CKD-EPI)NonAf >90 (>60 ml/min/1.73 sqM) Glucose 106 H (74-99) mg/dL Calcium 9.8 (8.4-10.2) mg/dL Total Bilirubin 0.4 (0.2-1.3) mg/dL AST 30 (14-36) U/L ALT 49 (9-52) U/L Alkaline Phosphatase 133 H (38-126) U/L Total Protein 7.8 (6.3-8.2) g/dL Albumin 4.6 (3.5-5.0) g/dL Urine Color Urine Appearance (Clear) Urine pH (5.0-8.0) Ur Specific [place] (1.001-1.035) Urine Protein (Negative) Urine Glucose (UA) (Negative) Urine Ketones (Negative) Urine Blood (Negative) Urine Nitrite (Negative) Urine Bilirubin (Negative) Urine Urobilinogen (<2.0) mg/dL Ur Leukocyte Esterase (Negative) Urine RBC (0-5) /hpf Urine WBC (0-5) /hpf Ur Squamous Epith Cells (0-4) /hpf Urine Mucus (None) /hpf Urine HCG, Qual Not Detected (Not Detectd) 07/31/19 Range/Units 18:20 WBC (3.8-10.6) k/uL RBC (3.80-5.40) m/uL Hgb (11.4-16.0) gm/dL Hct (34.0-46.0) % MCV (80.0-100.0) fL MCH (25.0-35.0) pg MCHC (31.0-37.0) g/dL RDW (11.5-15.5) % Plt Count (150-450) k/uL Neutrophils % % Lymphocytes % % Monocytes % % Eosinophils % % Basophils % % Neutrophils # (1.3-7.7) k/uL Lymphocytes # (1.0-4.8) k/uL Monocytes # (0-1.0) k/uL Eosinophils # (0-0.7) k/uL Basophils # (0-0.2) k/uL Sodium (137-145) mmol/L Potassium (3.5-5.1) mmol/L Chloride (98-107) mmol/L Carbon Dioxide (22-30) mmol/L Anion Gap mmol/L BUN (7-17) mg/dL Creatinine (0.52-1.04) mg/dL Est GFR (CKD-EPI)AfAm (>60 ml/min/1.73 sqM) Est GFR (CKD-EPI)NonAf (>60 ml/min/1.73 sqM) Glucose (74-99) mg/dL Calcium (8.4-10.2) mg/dL Total Bilirubin (0.2-1.3) mg/dL AST (14-36) U/L ALT (9-52) U/L Alkaline Phosphatase (38-126) U/L Total Protein (6.3-8.2) g/dL Albumin (3.5-5.0) g/dL Urine Color Yellow Urine Appearance Clear (Clear) Urine pH 6.0 (5.0-8.0) Ur Specific [place] 1.021 (1.001-1.035) Urine Protein Trace H (Negative) Urine Glucose (UA) Negative (Negative) Urine Ketones Negative (Negative) Urine Blood Large H (Negative) Urine Nitrite Negative (Negative) Urine Bilirubin Negative (Negative) Urine Urobilinogen 2.0 (<2.0) mg/dL Ur Leukocyte Esterase Negative (Negative) Urine RBC 150 H (0-5) /hpf Urine WBC 1 (0-5) /hpf Ur Squamous Epith Cells 3 (0-4) /hpf Urine Mucus Many H (None) /hpf Urine HCG, Qual (Not Detectd) - Radiology Data Ultrasound report was reviewed. Impression by Dr. Martin shows IUD appears in good position the uterine fundus. Complex right ovarian cyst. No evidence of torsion. No endometrial thickening. Region measures 2-3 mm. (Mandy Ricks) Disposition <Nel Morgan - Last Filed: 07/31/19 19:57> Is patient prescribed a controlled substance at d/c from ED?: No Time of Disposition: 21:20 <Mandy Ricks - Last Filed: 07/31/19 21:57> Clinical Impression: Vaginal bleeding Disposition: HOME SELF-CARE Condition: Good Instructions (If sedation given, give patient instructions): Dysfunctional U terine Bleeding (ED) Additional Instructions: Increase fluids. Rest. Follow-up with your JAVA PROGRAMMING PROFESSOR for recheck as soon as possibly return to the emergency department immediately for any new, worsening, or concerning symptoms. Referrals: Rosa Barajas DO [Doctor of Osteopathic Medicine] - 1-2 days Mariusz Ramirez DO [STAFF PHYSICIAN] - 1-2 days
[2019-07-31 18:42] LABS: Basophils # (A) 0.3 k/uL (0-0.2); Basophils % (A) 2 %; Eosinophils # (A) 0.5 k/uL (0-0.7); Eosinophils % (A) 4 %; HCT 42.8 % (34.0-46.0); HGB 14.7 gm/dL (11.4-16.0); Lymphocytes # (A) 3.3 k/uL (1.0-4.8); Lymphocytes % (A) 23 %; MCH 31.5 pg (25.0-35.0); MCHC 34.3 g/dL (31.0-37.0); MCV 91.7 fL (80.0-100.0); Mean Platelet Volume 7.4; Monocytes # (A) 0.6 k/uL (0-1.0); Monocytes % (A) 4 %; Neutrophils # (A) 9.2 k/uL (1.3-7.7); Neutrophils % (A) 65 %; Platelet Count 344 k/uL (150-450); RBC 4.66 m/uL (3.80-5.40); RDW 13.1 % (11.5-15.5); WBC 14.1 k/uL (3.8-10.6)
[2019-07-31 18:46] LABS: Appearance,Urine Clear (Clear); Bilirubin,Urine Negative (Negative); Blood,Urine Large (Negative); Color,Urine Yellow; Glucose,Urine (UA) Negative (Negative); Ketones,Urine Negative (Negative); Leukocyte Esterase,Urine Negative (Negative); Mucus,Urine Many /hpf; Nitrite,Urine Negative (Negative); Protein,Urine Trace (Negative); RBC,Urine 150 /hpf (0-5); Specific Gravity,Urine 1.021 (1.001-1.035); Squamous Epithelial Cell,Urine 3 /hpf (0-4)
[2019-07-31 18:50] LABS: ALT 49 U/L (9-52); AST 30 U/L (14-36); African American GFR (CKD) >90 (>60 ml/min/1.73 sqM); Albumin 4.6 g/dL (3.5-5.0); Alkaline Phosphatase 133 U/L (38-126); Anion Gap 11 mmol/L; Blood Urea Nitrogen 12 mg/dL (7-17); Calcium 9.8 mg/dL (8.4-10.2); Carbon Dioxide 25 mmol/L (22-30); Chloride 104 mmol/L (98-107); Glucose 106 mg/dL (74-99); Sodium 140 mmol/L (137-145); Total Bilirubin 0.4 mg/dL (0.2-1.3); Total Protein 7.8 g/dL (6.3-8.2)
--- NOTE | 2019-07-31 21:01 | US ---
EXAMINATION TYPE: US transvaginal DATE OF EXAM: 07/31/2019 COMPARISON: NONE CLINICAL HISTORY: Pain. Vaginal bleeding since 07/22/19, heavy bleeding with clots the last 3 days. I UD placement 2012 TECHNIQUE: Transvaginal (TV) Date of LMP: 07/07/19 EXAM MEASUREMENTS: Uterus: 10.3 x 5.3 x 8.0 cm Endometrial Stripe: 0.2 cm Right Ovary: 3.3 x 2.5 x 2.0 cm Left Ovary: unable to visualize 1. Uterus: Anteverted heterogeneous 2. Endometrium: IUD visualized within fundus/body of uterus 3. Right Ovary: possible right ovary visualized adjacent to fundus of uterus with complex cystic are a = 1.5 x 1.6 x 1.5cm 4. Left Ovary: Obscured by overlying bowel gas Spectral, color and waveform doppler imaging shows good arterial and venous flow within the right o vary; there is no evidence for ovarian torsion. 5. Bilateral Adnexa: appears wnl 6. Posterior cul-de-sac: wnl IMPRESSION: IUD appears in good position in the uterine fundus. Complex right ovarian cyst. No eviden ce of ovarian torsion. No endometrial thickening. Endometrium measures 2 to 3 mm.
[2019-07-31 21:38] VITALS: BP 132/82; PULSE 93; RESP 18; TEMP 98.3
== END 2019-07-31 21:38 | disposition home or self-care (01) ==
LOC: EC 17:25
DX: N93.9 Abnormal uterine and vaginal bleeding, unspecified (principal); D72.829 Elevated white blood cell count, unspecified; N83.201 Unspecified ovarian cyst, right side; F41.9 Anxiety disorder, unspecified; F32.9 Major depressive disorder, single episode, unspecified; I10 Essential (primary) hypertension; E07.9 Disorder of thyroid, unspecified; Z79.890 Hormone replacement therapy; F17.200 Nicotine dependence, unspecified, uncomplicated; Z79.899 Other long term (current) drug therapy; Z91.048 Other nonmedicinal substance allergy status; Z97.5 Presence of (intrauterine) contraceptive device
CPT/HCPCS: 36415; 76830; 80053; 81001; 81025; 84443; 85025; 93976; 96360; 99284

== ENCOUNTER 2019-10-14 12:38 | Emergency (ER) | payer OTHER ==
[2019-10-14] MEDS ORDERED: HYDROcodone/APAP 5-325MG 1 EACH TAB PO STA (12:53)
[2019-10-14] MEDS ORDERED: KETOROLAC 30 MG/ML 1 ML VIAL IM STA (12:53)
[2019-10-14 13:13] LABS: Appearance,Urine Clear (Clear); Bacteria,Urine Rare /hpf; Bilirubin,Urine Negative (Negative); Blood,Urine Negative (Negative); Color,Urine Yellow; Glucose,Urine (UA) Negative (Negative); Ketones,Urine Negative (Negative); Leukocyte Esterase,Urine Small (Negative); Mucus,Urine Rare /hpf; Nitrite,Urine Negative (Negative); Protein,Urine Negative (Negative); RBC,Urine 1 /hpf (0-5); Specific Gravity,Urine 1.018 (1.001-1.035); Squamous Epithelial Cell,Urine 3 /hpf (0-4); Urobilinogen,Urine <2.0 mg/dL (<2.0)
[2019-10-14 13:15] VITALS: TEMP 98.8
--- NOTE | 2019-10-14 13:34 | XR ---
EXAMINATION TYPE: XR lumbar spine 2 or 3V DATE OF EXAM: 10/14/2019 CLINICAL HISTORY: Fall injury with low back pain TECHNIQUE: Frontal and lateral images of the lumbar spine are obtained. COMPARISON: None FINDINGS: There are somewhat hypoplastic bilateral T12 ribs. There are 5 lumbar type vertebral cathy s identified. The lumbar spine shows satisfactory alignment without evidence of acute fracture or di slocation. Vertebral body heights and disk space heights are within normal limits. The overlying so ft tissue appears unremarkable. IMPRESSION: No acute fracture or dislocation is seen in the lumbar spine.
--- NOTE | 2019-10-14 13:36 | XR ---
EXAMINATION TYPE: XR ribs RT w pa chest xray DATE OF EXAM: 10/14/2019 CLINICAL HISTORY: Chest and right-sided rib pain after fall injury. TECHNIQUE: Single frontal view of the chest is obtained. A frontal and oblique images of right-sided ribs are acquired. COMPARISON: Chest x-ray June 30, 2014 FINDINGS: There is no focal air space opacity, pleural effusion, or pneumothorax seen. The cardiac silhouette size is within normal limits. There is old healed fracture deformity mid to distal right c lavicle on current study which is new from 2014 study. Images of right-sided ribs show no acute displaced fractures. Overlying soft tissue is unremarkable. IMPRESSION: 1. No acute cardiopulmonary process. 2. No acute displaced right-sided rib fractures are seen.
--- NOTE | 2019-10-14 13:46 | ED ---
General Adult HPI - General Chief complaint: Back Pain/Injury Stated complaint: back pain Time Seen by Provider: 10/14/19 12:43 Source: patient, RN notes reviewed, old records reviewed Mode of arrival: ambulatory Limitations: no limitations - History of Present Illness Initial comments: Patient is a 33-year-old female presents today for right-sided back pain ever slipped and fall on ice. Patient reports that On Saturday. Patient states that since that time she is having pain but it worsened over the past day. She reports that yesterday while work showed some lifting seem to exacerbate her pain. She denies any peripheral paresthesias. She reports that she is feeling her right ribs and is worse with taking a deep breath and movement. - Related Data Home Medications Medication Instructions Recorded Confirmed Acyclovir [Zovirax] 400 mg PO DAILY 07/18/18 06/01/19 DULoxetine HCL [Cymbalta] 60 mg PO DAILY 01/27/19 06/01/19 Metoprolol Succinate (ER) [Toprol 25 mg PO HS 01/27/19 06/01/19 Xl] Levothyroxine Sodium [Synthroid] 125 mcg PO DAILY 05/05/19 06/01/19 Previous Rx's Medication Instructions Recorded Cephalexin [Keflex] 500 mg PO Q6HR 5 Days #20 cap 06/01/19 Fluconazole [Diflucan] 150 mg PO ONCE #1 tab 06/01/19 metroNIDAZOLE [Flagyl] 500 mg PO BID 7 Days #14 tab 06/01/19 Fluconazole [Diflucan] 150 mg PO ONCE #1 tab 06/11/19 Cyclobenzaprine [Flexeril] 10 mg PO TID #12 tab 10/14/19 Ibuprofen 600 mg PO TID #30 tablet 10/14/19 Allergies Allergy/AdvReac Type Severity Reaction Status Date / Time adhesive tape Allergy Rash/Hives Verified 10/14/19 12:39 Review of Systems ROS Statement: Those systems with pertinent positive or pertinent negative responses have been documented in the HPI. ROS Other: All systems not noted in ROS Statement are negative. Past Medical History Past Medical History: GERD/Reflux, Hyperlipidemia, Hypertension, Thyroid Disorder Additional Past Medical History / Comment(s): Tourettes Syndrome,chronic back pain, History of Any Multi-Drug Resistant Organisms: None Reported Past Surgical History: Bladder Surgery, Tonsillectomy Additional Past Surgical History / Comment(s): colonoscopy,transvag mesh place, EGD, IUD in place, Additional Past Anesthesia/Blood Transfusion Reaction / Comment(s): tearful when waking up from anesthesia Past Psychological History: Anxiety, Depression Smoking Status: Current every day smoker Past Alcohol Use History: Occasional Past Drug Use History: None Reported - Past Family History Mother History Unknown: Yes Family Medical History: Rheumatoid Arthritis (RA) Additional Family Medical History / Comment(s): glaucoma,anxiety,depression Father Family Medical History: Diabetes Mellitus, Hypertension, Thyroid Disorder Additional Family Medical History / Comment(s): MRSA-WOUNDS General Exam - General Exam Comments Initial Comments: Is a Pleasant 33-year-old female. No distress. General: Well appearing, well nourished, in no distress. Oriented x 3, normal mood and affect . Ambulating without difficulty. Skin: Good turgor, no rash, unusual bruising or prominent lesions Hair: Normal texture and distribution. HEENT: Head: Normocephalic, atraumatic, no visible or palpable masses, depressions, or scaring. Eyes: Visual acuity intact, conjunctiva clear, sclera non-icteric, EOM intact, PERRL. Ears: EACs clear, TMs translucent & cone of light visualized. hearing intact. Nose: No external lesions, mucosa non-inflamed, septum and turbinates normal Mouth: Mucous membranes moist, no mucosal lesions. Teeth/Gums: No obvious caries or periodontal disease. No gingival inflammation or significant resorption. Pharynx: Mucosa non-inflamed, no tonsillar hypertrophy or exudate Neck: Supple, without lesions, bruits, or adenopathy, thyroid non-enlarged and non-tender Heart: No cardiomegaly or thrills; regular rate and rhythm, no murmur or gallop Lungs: Clear to auscultation and percussion Abdomen: Bowel sounds normal, no tenderness, organomegaly, masses, or hernia Back: Spine normal without deformity. Minimal lumbar spinal tenderness. Patient has tenderness over the right ribs. Mild ecchymosis noted. Extremities: No amputations or deformities, cyanosis, edema or varicosities, peripheral pulses intact Musculoskeletal: Normal gait and station. No misalignment, asymmetry, crepitation, defects, tenderness, masses, effusions, decreased range of motion, instability, atrophy or abnormal strength or tone in the head, neck, spine, ribs, pelvis or extremities. Limitations: no limitations Course Vital Signs 10/14/19 10/14/19 10/14/19 12:39 13:14 13:15 Temperature 98.7 F 98.8 F Pulse Rate 83 79 Respiratory 16 18 Rate Blood Pressure 136/90 122/87 122/87 O2 Sat by Pulse 100 99 97 Oximetry 10/14/19 10/14/19 10/14/19 13:30 14:00 14:30 Temperature Pulse Rate Respiratory Rate Blood Pressure 122/87 134/101 125/99 O2 Sat by Pulse 98 99 Oximetry 10/14/19 10/14/19 14:41 15:17 Temperature Pulse Rate 73 Respiratory 20 18 Rate Blood Pressure 124/83 O2 Sat by Pulse Oximetry Medical Decision Making - Medical Decision Making Febrile presents today for concern for a fall Saturday and complains of rib pain and back pain. Patient is a mild bruising of her ribs. X-ray lumbar spine and ribs are negative for any acute process. He has no abdominal pain. Vital signs are stable. Was given a dose of pain medicine emergency department. Her urinalysis negative for blood or infection. I discussed at this time patient's pain with further muscle spasm and can follow-up with her primary care doctor. Will discharge Patient with anti-inflammatory medicine and muscle relaxer. - Lab Data Lab Results 10/14/19 Range/Units 12:50 Urine Color Yellow Urine Appearance Clear (Clear) Urine pH 7.0 (5.0-8.0) Ur Specific [place] 1.018 (1.001-1.035) Urine Protein Negative (Negative) Urine Glucose (UA) Negative (Negative) Urine Ketones Negative (Negative) Urine Blood Negative (Negative) Urine Nitrite Negative (Negative) Urine Bilirubin Negative (Negative) Urine Urobilinogen <2.0 (<2.0) mg/dL Ur Leukocyte Esterase Small H (Negative) Urine RBC 1 (0-5) /hpf Urine WBC 1 (0-5) /hpf Ur Squamous Epith Cells 3 (0-4) /hpf Urine Bacteria Rare H (None) /hpf Urine Mucus Rare H (None) /hpf - Radiology Data Radiology results: report reviewed X-rays negative for any acute cardio pulmonary process. No acute displaced right rib fractures are seen. No acute fracture dislocation is seen in lumbar spine. Disposition Clinical Impression: Fall, Rib pain, Back pain, Muscle spasm Disposition: HOME SELF-CARE Condition: Good Instructions (If sedation given, give patient instructions): Acute Low Back Pain (ED) Additional Instructions: Please use medication as discussed. Please follow up with family doctor if symptoms have not improved over the next two days. Please return to the emergency room if your symptoms increase or worsen or for any other concerns. Prescriptions: Cyclobenzaprine [Flexeril] 10 mg PO TID #12 tab Ibuprofen 600 mg PO TID #30 tablet Is patient prescribed a controlled substance at d/c from ED?: No Referrals: Sanam Toledo MD [Primary Care Provider] - 1-2 days Time of Disposition: 14:48
[2019-10-14] MEDS ORDERED: ACET/COD 300 MG/30 MG STARTER PACK 6 TAB BTL PO STA (14:42)
[2019-10-14 15:18] VITALS: BP 124/83; PULSE 73; RESP 18
== END 2019-10-14 15:31 | disposition home or self-care (01) ==
LOC: EC 12:38
DX: S20.211A Contusion of right front wall of thorax, initial encounter (principal); M62.830 Muscle spasm of back; I10 Essential (primary) hypertension; E07.9 Disorder of thyroid, unspecified; F95.2 Tourette's disorder; F32.9 Major depressive disorder, single episode, unspecified; F41.9 Anxiety disorder, unspecified; F17.200 Nicotine dependence, unspecified, uncomplicated; Z91.048 Other nonmedicinal substance allergy status; Z79.890 Hormone replacement therapy; Z79.899 Other long term (current) drug therapy; Z82.61 Family history of arthritis; W00.0XXA Fall on same level due to ice and snow, initial encounter
CPT/HCPCS: 81001; 71101; 72100; 99284; 96372; J1885

== ENCOUNTER 2020-06-24 19:43 | Emergency (ER) | payer OTHER ==
[2020-06-24 21:00] LABS: Appearance,Urine Clear (Clear); Bilirubin,Urine Negative (Negative); Blood,Urine Negative (Negative); Color,Urine Light Yellow; Glucose,Urine (UA) Negative (Negative); Ketones,Urine Negative (Negative); Leukocyte Esterase,Urine Negative (Negative); Nitrite,Urine Negative (Negative); PH, Urine 6.5 (5.0-8.0); Protein,Urine Negative (Negative); Specific Gravity,Urine 1.008 (1.001-1.035); Urobilinogen,Urine <2.0 mg/dL (<2.0)
[2020-06-24 21:54] VITALS: RESP 16
[2020-06-24] MEDS ORDERED: metroNIDAZOLE 500 MG TAB PO STA (21:56)
--- NOTE | 2020-06-24 22:03 | ED ---
General Adult HPI - General Chief complaint: Abdominal Pain Stated complaint: Female Time Seen by Provider: 06/24/20 20:17 Source: patient, RN notes reviewed Mode of arrival: ambulatory Limitations: no limitations - History of Present Illness Initial comments: 34-year-old female with a past medical history of hyperlipidemia, hypertension, GERD, Tourette syndrome, chronic back pain presents to the emergency department for a chief complaint of vaginal discharge. This is been ongoing for the past 1-2 weeks. Patient states it is a white discharge. States that she has a history of bacterial vaginosis and feels that it could be related. Patient denies any dysuria. denies abdominal pain Patient denies concern for STDs states she is in a stable relationship. Patient has no other complaints at this time including shortness of breath, chest pain, abdominal pain, nausea or vomiting, headache, or visual changes. - Related Data Home Medications Medication Instructions Recorded Confirmed Acyclovir [Zovirax] 400 mg PO DAILY 07/18/18 06/01/19 DULoxetine HCL [Cymbalta] 60 mg PO DAILY 01/27/19 06/01/19 Metoprolol Succinate (ER) [Toprol 25 mg PO HS 01/27/19 06/01/19 Xl] Levothyroxine Sodium [Synthroid] 125 mcg PO DAILY 05/05/19 06/01/19 Dicyclomine [Bentyl] 20 mg PO QID PRN 06/24/20 06/24/20 Ergocalciferol [Vitamin D2] 50,000 unit PO SA 06/24/20 06/24/20 Ibuprofen [Motrin Ib] 600 mg PO Q8H PRN 06/24/20 06/24/20 Previous Rx's Medication Instructions Recorded Fluconazole [Diflucan] 150 mg PO ONCE #1 tab 06/24/20 metroNIDAZOLE [Flagyl] 500 mg PO TID 7 Days #21 tab 06/24/20 Allergies Allergy/AdvReac Type Severity Reaction Status Date / Time adhesive tape Allergy Rash/Hives Verified 06/24/20 21:58 Review of Systems ROS Statement: Those systems with pertinent positive or pertinent negative responses have been documented in the HPI. ROS Other: All systems not noted in ROS Statement are negative. Past Medical History Past Medical History: GERD/Reflux, Hyperlipidemia, Hypertension, Thyroid Disorder Additional Past Medical History / Comment(s): Tourettes Syndrome,chronic back pain, History of Any Multi-Drug Resistant Organisms: None Reported Past Surgical History: Bladder Surgery, Tonsillectomy Additional Past Surgical History / Comment(s): colonoscopy,transvag mesh place, EGD, IUD in place, Additional Past Anesthesia/Blood Transfusion Reaction / Comment(s): tearful when waking up from anesthesia Past Psychological History: Anxiety, Depression Smoking Status: Current every day smoker Past Alcohol Use History: Occasional Past Drug Use History: None Reported - Past Family History Mother History Unknown: Yes Family Medical History: Rheumatoid Arthritis (RA) Additional Family Medical History / Comment(s): glaucoma,anxiety,depression Father Family Medical History: Diabetes Mellitus, Hypertension, Thyroid Disorder Additional Family Medical History / Comment(s): MRSA-WOUNDS General Exam Limitations: no limitations General appearance: alert, in no apparent distress Head exam: Present: atraumatic, normocephalic, normal inspection Eye exam: Present: normal appearance, PERRL, EOMI. Absent: scleral icterus, conjunctival injection, periorbital swelling ENT exam: Present: normal exam, mucous membranes moist Neck exam: Present: normal inspection, full ROM. Absent: tenderness, meningismus, lymphadenopathy Respiratory exam: Present: normal lung sounds bilaterally. Absent: respiratory distress, wheezes, rales, rhonchi, stridor Cardiovascular Exam: Present: regular rate, normal rhythm, normal heart sounds. Absent: systolic murmur, diastolic murmur, rubs, gallop, clicks GI/Abdominal exam: Present: soft, normal bowel sounds. Absent: distended, tenderness, guarding, rebound, rigid External exam: Present: normal external exam. Absent: erythema, swelling, lesions, lacerations, ecchymosis Speculum exam: Present: normal speculum exam. Absent: erythema, vaginal discharge, cervical discharge, vaginal bleeding, foreign body, tissue, laceration By manual exam: Present: normal by manual exam. Absent: cervical motion tenderness, adnexal tenderness, adnexal mass, uterine enlargement, uterine tenderness Course Vital Signs 06/24/20 06/24/20 19:54 20:58 Temperature 98.3 F Pulse Rate 75 Respiratory 20 16 Rate Blood Pressure 154/97 O2 Sat by Pulse 99 Oximetry Medical Decision Making - Medical Decision Making pelvic exam is unremarkable. Gonorrhea chlamydia Trichomonas pending. Genital culture pending. Patient refuses empiric treatment for STDs. urinalysis negative, hCG negative. patient requests treatment for bacterial vaginosis that she feels this is the cause of her symptoms given her previous experiences. patient will be treated with Flagy. She will follow up for high blood pressure. She'll return here to the emergency room for any worsening symptoms. - Lab Data Lab Results 06/24/20 06/24/20 06/24/20 Range/Units 20:51 20:51 21:10 Urine Color Light Yellow Urine Appearance Clear (Clear) Urine pH 6.5 (5.0-8.0) Ur Specific [place] 1.008 (1.001-1.035) Urine Protein Negative (Negative) Urine Glucose (UA) Negative (Negative) Urine Ketones Negative (Negative) Urine Blood Negative (Negative) Urine Nitrite Negative (Negative) Urine Bilirubin Negative (Negative) Urine Urobilinogen <2.0 (<2.0) mg/dL Ur Leukocyte Esterase Negative (Negative) Urine HCG, Qual Not Detected (Not Detectd) Trichomonas Ag (Rapid) Negative (Negative) Disposition Clinical Impression: Vaginal discharge, High blood pressure Disposition: HOME SELF-CARE Condition: Good Instructions (If sedation given, give patient instructions): Vaginal Discharge (ED) Additional Instructions: please take medications as directed. Do not drink alcohol with Flagyl. Please follow-up with [facility]. Return to the emergency room for any worsening symptoms. Prescriptions: Fluconazole [Diflucan] 150 mg PO ONCE #1 tab metroNIDAZOLE [Flagyl] 500 mg PO TID 7 Days #21 tab Is patient prescribed a controlled substance at d/c from ED?: No Referrals: Sanam Toledo MD [Primary Care Provider] - 1-2 days Time of Disposition: 21:59
[2020-06-24 22:34] VITALS: BP 147/82; PULSE 88; TEMP 98.7
== END 2020-06-24 22:30 | disposition home or self-care (01) ==
LOC: EC 19:43
DX: N89.8 Other specified noninflammatory disorders of vagina (principal); I10 Essential (primary) hypertension; E07.9 Disorder of thyroid, unspecified; F41.9 Anxiety disorder, unspecified; F32.9 Major depressive disorder, single episode, unspecified; G89.29 Other chronic pain; M54.9 Dorsalgia, unspecified; F17.200 Nicotine dependence, unspecified, uncomplicated; Z79.890 Hormone replacement therapy; Z79.899 Other long term (current) drug therapy; Z91.048 Other nonmedicinal substance allergy status; Z97.5 Presence of (intrauterine) contraceptive device
CPT/HCPCS: 81003; 81025; 87070; 87491; 87591; 87808; 99284

== ENCOUNTER 2020-09-06 17:13 | Emergency (ER) | payer OTHER ==
[2020-09-06 17:33] VITALS: BP 153/106; PULSE 99; RESP 18; TEMP 98.2
[2020-09-06] MEDS ORDERED: ACET/COD 300 MG/30 MG STARTER PACK 6 TAB BTL PO STA (18:29)
--- NOTE | 2020-09-06 18:32 | ED ---
ENT HPI - General Chief complaint: Dental/Oral Stated complaint: Abscess Time Seen by Provider: 09/06/20 17:30 Source: patient, RN notes reviewed Mode of arrival: ambulatory Limitations: no limitations - History of Present Illness Initial comments: 34-year-old female presents emergency department with chief complaint of dental pain. Patient states that she's had been sick on Saturday she noticed swelling crease over nighttime with pain started yesterday. Patient denies any difficulty signed she has a known bad tooth in which she supposed to have it extracted on the . Patient denies any known fever or chills night sweats no headache or dizziness. - Related Data Home Medications Medication Instructions Recorded Confirmed Acyclovir [Zovirax] 400 mg PO DAILY PRN 07/18/18 06/24/20 DULoxetine HCL [Cymbalta] 60 mg PO DAILY 01/27/19 06/24/20 Metoprolol Succinate (ER) [Toprol 25 mg PO DAILY 01/27/19 06/24/20 Xl] Levothyroxine Sodium [Synthroid] 125 mcg PO DAILY 05/05/19 06/24/20 Dicyclomine [Bentyl] 20 mg PO QID PRN 06/24/20 06/24/20 Ergocalciferol [Vitamin D2] 50,000 unit PO SA 06/24/20 06/24/20 Ibuprofen [Motrin Ib] 600 mg PO Q8H PRN 06/24/20 06/24/20 Previous Rx's Medication Instructions Recorded Fluconazole [Diflucan] 150 mg PO ONCE #1 tab 06/24/20 metroNIDAZOLE [Flagyl] 500 mg PO TID 7 Days #21 tab 06/24/20 Fluconazole [Diflucan] 150 mg PO ONCE #4 tab 09/06/20 Ibuprofen [Motrin] 800 mg PO Q6HR #30 tab 09/06/20 Penicillin V Potassium [Pen Vee K] 500 mg PO QID #40 tablet 09/06/20 Allergies Allergy/AdvReac Type Severity Reaction Status Date / Time adhesive tape Allergy Rash/Hives Verified 09/06/20 17:29 Review of Systems ROS Statement: Those systems with pertinent positive or pertinent negative responses have been documented in the HPI. ROS Other: All systems not noted in ROS Statement are negative. Past Medical History Past Medical History: GERD/Reflux, Hyperlipidemia, Hypertension, Thyroid Disorder Additional Past Medical History / Comment(s): Tourettes Syndrome,chronic back pain, tachycardia History of Any Multi-Drug Resistant Organisms: None Reported Past Surgical History: Bladder Surgery, Tonsillectomy Additional Past Surgical History / Comment(s): colonoscopy,transvag mesh place, EGD, IUD in place, Additional Past Anesthesia/Blood Transfusion Reaction / Comment(s): tearful when waking up from anesthesia Past Psychological History: Anxiety, Depression Smoking Status: Current every day smoker Past Alcohol Use History: Occasional Past Drug Use History: None Reported - Past Family History Mother History Unknown: Yes Family Medical History: Rheumatoid Arthritis (RA) Additional Family Medical History / Comment(s): glaucoma,anxiety,depression Father Family Medical History: Diabetes Mellitus, Hypertension, Thyroid Disorder Additional Family Medical History / Comment(s): MRSA-WOUNDS General Exam Limitations: no limitations General appearance: alert, in no apparent distress Head exam: Present: atraumatic, normocephalic, normal inspection Eye exam: Present: normal appearance, PERRL, EOMI. Absent: scleral icterus, conjunctival injection, periorbital swelling ENT exam: Present: mucous membranes moist, TM's normal bilaterally, normal ex ternal ear exam. Absent: normal oropharynx (Poor dentition, dental fracture left lower with moderate swelling along the lower jawline, no drainable abscess) Neck exam: Present: normal inspection, full ROM. Absent: tenderness, meningismus, lymphadenopathy Respiratory exam: Present: normal lung sounds bilaterally. Absent: respiratory distress, wheezes, rales, rhonchi, stridor Cardiovascular Exam: Present: regular rate, normal rhythm, normal heart sounds. Absent: systolic murmur, diastolic murmur, rubs, gallop, clicks Course Vital Signs 09/06/20 17:30 Temperature 98.2 F Pulse Rate 99 Respiratory 18 Rate Blood Pressure 153/106 O2 Sat by Pulse 100 Oximetry Medical Decision Making - Medical Decision Making Patient has early dental infection, abscess no drainable abscess will be started antibiotics and follow-up with dental clinic. Disposition Clinical Impression: Fracture of tooth, Dental abscess Disposition: HOME SELF-CARE Condition: Stable Instructions (If sedation given, give patient instructions): Dental Abscess (ED) Additional Instructions: Please return to the Emergency Department if symptoms worsen or any other concerns. Prescriptions: Fluconazole [Diflucan] 150 mg PO ONCE #4 tab Ibuprofen [Motrin] 800 mg PO Q6HR #30 tab Penicillin V Potassium [Pen Vee K] 500 mg PO QID #40 tablet Is patient prescribed a controlled substance at d/c from ED?: No Referrals: Sanam Toledo MD [Primary Care Provider] - 1-2 days Time of Disposition: 18:32
== END 2020-09-06 18:41 | disposition home or self-care (01) ==
LOC: EC 17:13
DX: K04.7 Periapical abscess without sinus (principal); S02.5XXA Fracture of tooth (traumatic), initial encounter for closed fracture; F17.200 Nicotine dependence, unspecified, uncomplicated; K21.9 Gastro-esophageal reflux disease without esophagitis; E78.5 Hyperlipidemia, unspecified; I10 Essential (primary) hypertension; E07.9 Disorder of thyroid, unspecified; G89.29 Other chronic pain; M54.9 Dorsalgia, unspecified; F41.9 Anxiety disorder, unspecified; F32.9 Major depressive disorder, single episode, unspecified; Z79.899 Other long term (current) drug therapy; Z79.890 Hormone replacement therapy; X58.XXXA Exposure to other specified factors, initial encounter
CPT/HCPCS: 99282